=== PATIENT | male | born 1945 | race Caucasian/White ===

== ENCOUNTER 2016-12-15 22:10 | Inpatient (IN) | payer OTHER ==
[~2016-12-15] VITALS: Ht 190.5 cm; Wt 87.9 kg
[~2016-12-15 22:10] MED LIST: ASPEC81 PO; ATOR-24 PO; CALCTAB65 PO; CETI10TA10 PO; CMBIN INH; CPR500 PO; CRG125 PO; DABI150C PO; DILT-115 PO; FLUN0.02 NAE; FRS/40 PO; GUAI100S16 PO; HYDR200T5 PO; LEVO75TA PO; LNX125 PO; MORP-87 PO; MULT-513 PO; OMEP20CA59 PO; PARO40TA3 PO; POTA20TA16 PO; PRED20TA2 PO; RANI150T3 PO; SLFEC500 PO; TRAZ1TAB16 PO; [UNRECOGNIZED DRUG - CODE] OPB
[2016-12-15] MEDS ORDERED: SODIUM CHLORIDE 0.9% 1000ML 1,000 ML IV STA (22:42)
--- NOTE | 2016-12-15 22:50 | EMERGENCY ROOM VISIT NOTE ---
History Report prepared by Juan: Pily Dodson Under the Supervision of: Dr. Clyde Cruz D.O. First contact with patient: 22:36 Chief Complaint: SHORTNESS OF BREATH Stated Complaint: SOB, HEADACHE, CHEST PAIN, EYE PAIN Nursing Triage Summary: patient brought in by ems patient reports SOB since 1900 yesterday with intermittent chest pain patient reports left eye pain and left ear ache patient has hx of pacemaker History of Present Illness The patient is a 71 year old male who presents to the Emergency Room with complaints of constant shortness of breath beginning yesterday. He reports that last night he started having a headache and when he went to bed he felt like "a fish out of water" and very short of breath. He states that this morning he woke up and felt a little better but by the afternoon he was having the shortness of breath again. The patient complains of left eye pain below the brow , runny nose, and a left sided headache. He denies any fever, cough, and sore throat. He notes that the oxygen helps his shortness of breath. He reports that he had a pacemaker put in 6 weeks ago. The patient notes that he had a flu shot 3 weeks ago. Source of History: patient Onset: yesterday Position: other (global) Quality: other (shortness of breath "fish out of water") Timing: constant Modifying Factors (Relieving): oxygen Associated Symptoms: + headache, No cough, No fevers, No sorethroat Note: The patient has eye pain and runny nose. Review of Systems See HPI for pertinent positives & negatives. A total of 10 systems reviewed and were otherwise negative. Past Medical & Surgical Medical Problems: (1) Appendectomy (2) Atrial fibrillation (3) Benign hypertension (4) Gastroesophageal reflux disease (5) Hypotension (6) Pneumonia (7) Rheumatoid arthritis (8) Right lower lobe pneumonia (9) SIRS (systemic inflammatory response syndrome) (10) Stress fracture of right hip (11) Ulcers Family History Unobtainable family history due to adoption Social History Smoking Status: Never Smoker Alcohol Use: occasionally Drug Use: none Marital Status: Housing Status: lives alone Occupation Status: retired Current/Historical Medications Scheduled Artificial Tear Ointment (Lubricant Eye), 1 APPLN OPB HS Aspirin (Aspirin EC Low Dose), 81 MG PO QAM Atorvastatin (Lipitor), 1 TAB PO DAILY Calcium Carbonate-Vitamin D (Calcium 500 + D), 1 TAB PO BID Carvedilol (Carvedilol), 12.5 MG PO BID Dabigatran Etexilate Mesylate (Pradaxa), 1 CAP PO BID Digoxin (Digoxin), 0.125 MG PO DAILY@16 Diltiazem Hcl Ext Rel (Tiazac), 240 MG PO DAILY Furosemide (Lasix), 40 MG PO DAILY Hydroxychloroquine Sulfate (Plaquenil), 200 MG PO BID Levothyroxine Sodium (Synthroid), 75 MCG PO DAILY Multivitamins/Minerals (Mvi With Minerals), 1 TAB PO DAILY AT NOON Omeprazole (Prilosec), 20 MG PO QAM Paroxetine Hcl (Paxil), 40 MG PO QAM Potassium Ext Rel (Klor-Con), 20 MEQ PO DAILY Prednisone (Prednisone Tab), 10 MG PO BID Ranitidine Hcl (Zantac), 150 MG PO HS Sulfasalazine (Sulfasalazine), 500 MG PO BID Scheduled PRN Cetirizine Hcl (Zyrtec), 10 MG PO DAILY PRN for ALLERGIC REACTION Flunisolide (Nasal) (Flunisolide), 2 PUFFS ARIADNA BID PRN for Nasal Congestion Guaifenesin (Guaifenesin), 10 ML PO BID PRN for Cough Ipratropium/Albuterol (Combivent), 1 PUFFS INH QID PRN for Shortness of Breath Morphine Sulfate (Morphine Sulfate Cr), 30 MG PO Q12 PRN for Pain Trazodone Hcl (Desyrel), 50 MG PO HS PRN for Sleep Allergies Coded Allergies: NO KNOWN DRUG ALLERGIES (Verified Allergy, Unknown, ., 12/16/16) Physical Exam Vital Signs Date Time Temp Pulse Resp B/P Pulse Ox O2 Delivery O2 Flow Rate FiO2 12/15/16 23:38 96 22 129/97 99 Nasal Cannula 2.0 12/15/16 22:25 101 12/15/16 22:19 100 Nasal Cannula 2.0 12/15/16 22:19 36.9 99 22 114/71 93 Room Air Physical Exam CONSTITUTIONAL/VITAL SIGNS: Reviewed / noted above. GENERAL: Non-toxic in appearance. INTEGUMENTARY: Warm, dry, and [place]. HEAD: Normocephalic. EYES: without scleral icterus or trauma. No conjunctival injection, the globe appears normal, EOM is intact without discomfort, the pt localized the pain to the left supraorbital region. There is no tenderness to palpation of the temporal artery. ENT/OROPHARYNX: clear and moist. LYMPHADENOPATHY/NECK: Is supple without lymphadenopathy or meningismus. RESPIRATORY: Lungs clear and equal. CARDIOVASCULAR: Regular rate and rhythm. GI/ABDOMEN: Soft and nontender. No organomegaly or pulsatile mass. No rebound or guarding. Normal bowel sounds. EXTREMITIES: Warm and well perfused. BACK: No CVA tenderness. NEUROLOGICAL: Intact without focal deficits. PSYCHIATRIC: normal affect. MUSCULOSKELETAL: Normally developed with good muscle tone. Medical Decision & Procedures ER Provider Diagnostic Interpretation: X ray results and stated below per my interpretation and radiologist interpretation. Other radiology results and stated below per my review and radiologist interpretation: CHEST ONE VIEW PORTABLE FINDINGS: A left subclavian pacer/AICD is in place. Marked cardiomegaly is unchanged. There is no pneumothorax. Degenerative changes of both glenohumeral joints are incidentally noted. Elevation of the left hemidiaphragm is unchanged. Mild interstitial thickening is present. There is no pneumothorax or pleural effusion. IMPRESSION: 1. Mild interstitial thickening. Pulmonary edema is favored. An infectious process could appear similar although is considered less likely. 2. Stable cardiomegaly and elevation of the left hemidiaphragm. Electronically signed by: Reinier Chung M.D. 12/15/2016 10:58 PM Dictated Date/Time: 12/15/2016 10:[address] HEAD: No ICH, mass effect or edema. No evidence of acute cortical stroke. Periventricular small vessel ischemic change. No midline shift or hydrocephalus. Diffuse parenchymal atrophy. CT SINUSES: Opacified left ethmoidal air cells and maxillary sinus. No air-fluid levels. Thickening of the wall of the left maxillary sinus indicated the long-standing nature of this chronic inflammatory process. Opacified inferior left mastoid air cells. Correlate cor clinical significance. No acute or healing fracture. Radiologist: Everardo Sorto M.D. Laboratory Results 12/15/16 22:00 Red Blood Count 4.03, Mean Corpuscular Volume 86.8, Mean Corpuscular Hemoglobin 26.8, Mean Corpuscular Hemoglobin Concent 30.9, Mean Platelet Volume 9.5, Neutrophils (%) (Auto) 74.3, Lymphocytes (%) (Auto) 11.6, Monocytes (%) (Auto) 11.1, Eosinophils (%) (Auto) 2.3, Basophils (%) (Auto) 0.3, Neutrophils # (Auto ) 7.68, Lymphocytes # (Auto) 1.20, Monocytes # (Auto) 1.15, Eosinophils # (Auto ) 0.24, Basophils # (Auto) 0.03 12/15/16 22:00 Test 12/15/16 22:00 12/15/16 22:36 12/15/16 23:00 White Blood Count 10.34 K/uL (4.8-10.8) Red Blood Count 4.03 M/uL (4.7-6.1) Hemoglobin 10.8 g/dL (14.0-18.0) Hematocrit 35.0 % (42-52) Mean Corpuscular Volume 86.8 fL (80-100) Mean Corpuscular Hemoglobin 26.8 pg (25-34) Mean Corpuscular Hemoglobin Concent 30.9 g/dl (32-36) Platelet Count 215 K/uL (130-400) Mean Platelet Volume 9.5 fL (7.4-10.4) Neutrophils (%) (Auto) 74.3 % Lymphocytes (%) (Auto) 11.6 % Monocytes (%) (Auto) 11.1 % Eosinophils (%) (Auto) 2.3 % Basophils (%) (Auto) 0.3 % Neutrophils # (Auto) 7.68 K/uL (1.4-6.5) Lymphocytes # (Auto) 1.20 K/uL (1.2-3.4) Monocytes # (Auto) 1.15 K/uL (0.11-0.59) Eosinophils # (Auto) 0.24 K/uL (0-0.5) Basophils # (Auto) 0.03 K/uL (0-0.2) RDW Standard Deviation 54.6 fL (36.4-46.3) RDW Coefficient of Variation 17.1 % (11.5-14.5) Immature Granulocyte % (Auto) 0.4 % Immature Granulocyte # (Auto) 0.04 K/uL (0.00-0.02) Nucleated RBC Absolute Count (auto) 0.05 K/uL (0-0) Nucleated Red Blood Cells % 0.4 % Erythrocyte Sedimentation Rate 28 mm/hr (0-14) Prothrombin Time 12.9 SECONDS (9.0-12.0) Prothromb Time International Ratio 1.2 (0.9-1.1) Activated Partial Thromboplast Time 42.0 SECONDS (21.0-31.0) Partial Thromboplastin Ratio 1.6 Anion Gap 13.0 mmol/L (3-11) Est Creatinine Clear Calc Drug Dose 179.5 ml/min Estimated GFR () 130.5 Estimated GFR (Non- 112.6 BUN/Creatinine Ratio 21.3 (10-20) Calcium Level 8.5 mg/dl (8.5-10.1) Magnesium Level 1.9 mg/dl (1.8-2.4) Total Bilirubin 0.8 mg/dl (0.2-1) Direct Bilirubin 0.3 mg/dl (0-0.2) Aspartate Amino Transf (AST/SGOT) 18 U/L (15-37) Alanine Aminotransferase (ALT/SGPT) 17 U/L (12-78) Alkaline Phosphatase 64 U/L (45-117) Total Creatine Kinase 49 U/L (39-308) Creatine Kinase MB 2.1 ng/ml (0.5-3.6) Creatine Kinase MB Ratio 4.3 (0-3.0) Troponin I 0.081 ng/ml (0-0.045) Total Protein 6.8 gm/dl (6.4-8.2) Albumin 3.2 gm/dl (3.4-5.0) Thyroid Stimulating Hormone (TSH) 2.240 uIu/ml (0.300-4.500) Urine Color YELLOW Urine Appearance CLEAR (CLEAR) Urine pH 6.0 (4.5-7.5) Urine Specific [place] 1.020 (1.000-1.030) Urine Protein 1+ (NEG) Urine Glucose (UA) NEG (NEG) Urine Ketones NEG (NEG) Urine Occult Blood NEG (NEG) Urine Nitrite NEG (NEG) Urine Bilirubin NEG (NEG) Urine Urobilinogen POS (NEG) Urine Leukocyte Esterase NEG (NEG) Urine RBC 0-4 /hpf (0-4) Urine WBC 0 /hpf (0-5) Urine Epithelial Cells 0-5 /lpf (0-5) Urine Bacteria NEG (NEG) Influenza Type A (RT-PCR) Neg for Influ A (NEG) Influenza Type B (RT-PCR) Neg for Influ B (NEG) Laboratory results as stated above per my review. Medications Administered Medications (Trade) Dose Ordered Sig/Timo Route Start Time Stop Time Status Last Admin Dose Admin Oxycodone/ Acetaminophen (Percocet 5-325mg Tab) 1 tab NOW ONCE PO 12/15/16 23:45 12/15/16 23:46 DC 12/15/16 23:36 1 TAB ECG Indication: SOB/dyspnea Rate (beats per minute): 90 Rhythm: atrial fibrillation Findings: PVC, ST depression (Anterolateral) Comparison ECG Date: 09/12/16 Change: ST changes worse than baseline on old EKG. ED Course 2235: Previous medical records were reviewed. The patient was evaluated in room B2. A complete history and physical examination was performed. 2242: Sodium Chloride 1000 ml @ 999 mls/hr IV. 2345: Oxycodone/Acetaminophen 1 tab PO. 0022: Discussed the patient's case with Dr. Wetzel. The patient will be evaluated for further treatment and disposition. 0032:On reevaluation, the patient is hemodynamically stable. I discussed the results and findings with the patient. He verbalized agreement of the treatment plan. I spoke with Dr. Wetzel who is the resident working with Dr. Erazo of the [facility] Hospitalist Service. The patient will be evaluated for further management and care. Medical Decision The differential was considered includes acute myocardial infarction, acute coronary syndrome, myocarditis, pericarditis, pericardial effusions /tamponad, esophageal perforation, pulmonary embolism, pneumonia, pneumothorax, cardiomyopathy, congestive heart, anemia , COPD/asthma exacerbation. This is a 71-year-old male who presents to the ED with a chief complaint of some shortness of breath as well as a pain in the left periorbital area. Further details listed above. The patient's symptoms of a knot on for the past couple of days. His exam did not reveal any tenderness over the temporal artery. His external motion is intact. The globe of the eye does not appear to be associated with the pain. His membranes are slightly dry. His exam is otherwise unremarkable. Chest x-ray reveals mild interstitial pulmonary edema. Complete metabolic panel was unremarkable. Troponin is elevated at 0.08. Urine did not show infection. EKG shows a sinus rhythm with some ST depressions anterolaterally. These appear to be worse than a previous EKG. Baseline patient fibrillation with PVCs noted. Sedimentation rate was slightly elevated. CT scan of the head and sinuses reveals some chronic sinusitis changes in the left ethmoid maxillary region. The patient was given Percocet by mouth for his pain. Because of his elevated troponin and shortness of breath , patient will be seen for inpatient care. He is on new generation oral anticoagulation for his A. fib. The patient clinically stable and has no complaints at this time. Consults Time Called: [phone] Consulting Physician: Dr. Wetzel Returned Call: [phone] Discussed the patient's case with Dr. Wetzel. The patient will be evaluated for further treatment and disposition. Impression Primary Impression: NSTEMI (non-ST elevated myocardial infarction) Additional Impressions: CHF (congestive heart failure) Chronic sinusitis Scribe Attestation The scribe's documentation has been prepared under my direction and personally reviewed by me in its entirety. I confirm that the note above accurately reflects all work, treatment, procedures, and medical decision making performed by me. Departure Information Referrals Gena Simmons M.D. (PCP) Patient Instructions My [facility] Problem Qualifiers
[2016-12-15 22:52] LABS: BASO % 0.3 %; BASO ABS # 0.03 K/uL (0-0.2); COMPLETE YES; EOS % 2.3 %; IG% 0.4 %; LYMPH % 11.6 %; MEAN CELL VOLUME 86.8 fL (80-100); MEAN CORPUSCULAR HEMOGLOBIN 26.8 pg (25-34); MEAN CORPUSCULAR HGB CONC 30.9 g/dl (32-36); MEAN PLATELET VOLUME 9.5 fL (7.4-10.4); MONO % 11.1 %; NEUT % 74.3 %; PLATELET COUNT 215 K/uL (130-400); RED BLOOD COUNT 4.03 M/uL (4.7-6.1); WHITE BLOOD COUNT 10.34 K/uL (4.8-10.8)
--- NOTE | 2016-12-15 22:59 | DIAGNOSTIC IMAGING REPORT ---
CHEST ONE VIEW PORTABLE CLINICAL HISTORY: Altered mental status. Weakness. Shortness of breath. COMPARISON STUDY: Chest radiograph September 13, 2016. FINDINGS: A left subclavian pacer/AICD is in place. Marked cardiomegaly is unchanged. There is no pneumothorax. Degenerative changes of both glenohumeral joints are incidentally noted. Elevation of the left hemidiaphragm is unchanged. Mild interstitial thickening is present. There is no pneumothorax or pleural effusion. IMPRESSION: 1. Mild interstitial thickening. Pulmonary edema is favored. An infectious process could appear similar although is considered less likely. 2. Stable cardiomegaly and elevation of the left hemidiaphragm. Electronically signed by: Reinier Chung M.D. 12/15/2016 10:58 PM Dictated Date/Time: 12/15/2016 10:56 PM
[2016-12-15 23:02] LABS: MANUAL MICROSCOPIC REQUIRED? YES; URINE APPEARANCE CLEAR (CLEAR); URINE BILIRUBIN NEG (NEG); URINE COLOR YELLOW; URINE NITRITE NEG (NEG); UROBILINOGEN POS (NEG)
[2016-12-15 23:03] LABS: REVIEW REQ? NO
[2016-12-15 23:03] LABS: INR 1.2 (0.9-1.1); PARTIAL THROMBOPLASTIN RATIO 1.6; PROTHROMBIN TIME (PATIENT) 12.9 SECONDS (9.0-12.0)
[2016-12-15 23:06] LABS: BUN/CREATININE RATIO 21.3 (10-20); CALCIUM 8.5 mg/dl (8.5-10.1); CREATININE 0.47 mg/dl (0.60-1.40); MAGNESIUM 1.9 mg/dl (1.8-2.4); POTASSIUM 3.5 mmol/L (3.5-5.1)
[2016-12-15 23:11] LABS: URINE BACTERIA NEG (NEG); URINE RBC 0-4 /hpf (0-4); URINE WBC 0 /hpf (0-5); ZZUR CULT IF INDIC CLEAN CATCH NO
[2016-12-15 23:27] LABS: CKMB/CK RATIO 4.3 (0-3.0); THYROID STIMULATING HORMONE 2.24 uIu/ml (0.300-4.500)
[2016-12-15] MEDS ORDERED: OXYCODONE/ACETAMINOPHEN 5-325 TAB PO ONE (23:45)
[2016-12-16] VITALS (10 sets, daily range): BP systolic 83–137; BP diastolic 47–89; PULSE 59–103; TEMP 36.5–37.1; O2SAT 91–99; Ht 190.5 cm; Wt 87.9 kg
[2016-12-16 00:43] LABS: INFLUENZA A PCR Neg for Influ A (NEG); INFLUENZA B PCR Neg for Influ B (NEG)
[2016-12-16] MEDS ORDERED: NITROGLYCERIN 0.4 MG SL PER TAB CHARGE SL PRN (01:15)
[2016-12-16] MEDS ORDERED: POLYETHYLENE (MIRALAX) 17 GM PACK PO PRN (01:15)
[2016-12-16] MEDS ORDERED: ENOXAPARIN 40 MG/0.4 ML SYR SC SCH (01:15)
[2016-12-16] MEDS ORDERED: ONDANSETRON INJ 2 MG/ML 2 ML VIAL IV PRN (01:15)
[2016-12-16] MEDS ORDERED: MAGNESIUM HYDROXIDE SUSP 30 ML UDC PO PRN (01:15)
[2016-12-16] MEDS ORDERED: FUROSEMIDE 40 MG/4 ML VIAL IV STA (01:20)
[2016-12-16] MEDS ORDERED: TRAZODONE HCL 50 MG TAB PO PRN (01:30)
[2016-12-16] MEDS ORDERED: CETIRIZINE HCL 10 MG TAB PO PRN (01:30)
[2016-12-16] MEDS ORDERED: GUAIFENESIN SUGAR FREE 100 MG/5 ML UDC PO PRN ×2 (01:30→02:30)
--- NOTE | 2016-12-16 01:42 | History and Physical ---
History & Physical Date & Time of Service: Dec 16, 2016 at 01:29 Chief Complaint: Sob, Headache, Chest Pain, Eye Pain Primary Care Physician: No Doctor, Assigned History of Present Illness Source: patient Patient is a pleasant 71 year old male with a history of recently diagnosed systolic CHF (EF 25-30%), who presents with 2 days of shortness of breath. He notes he was doing generally well until 2 days ago when he started feeling more short of breath. He was short enough that he needed to cancel dinner. He also states being more short of breath when lying flat and feeling like sitting forward makes it better. He has also felt sporadically slightly lightheaded though this would occur both at rest and when he was moving. He has had some aching discomfort in his left clavicle, but denies any crushing/pressure-like chest pain. The pain in his clavicle doesn't radiate to the jaw or arms. He has intermittently had palpitations. For the past one week he notes, a cough with phlegm. He denies fevers, nightsweats or chills. In addition to his symptoms, he notes some pain in his left eye that goes to the top of the head back of the byrd. He denies blurred vision or photophobia. He has not had a specific weakness or sensory changes elsewhere in the body. His appetite has been slightly reduced for the past week but he continues to void per baseline. A 10 point review of systems was negative unless stated above. Past Medical/Surgical History Medical Problems: (1) Appendectomy Status: Resolved (2) Atrial fibrillation Status: Chronic (3) Benign hypertension Status: Chronic (4) Gastroesophageal reflux disease Status: Chronic (5) Pneumonia Status: Chronic (6) Rheumatoid arthritis Status: Chronic (7) Stress fracture of right hip Status: Chronic (8) Ulcers Status: Chronic Family History Unobtainable family history due to adoption Social History Smoking Status: Never Smoker Smokeless Tobacco Use: No Alcohol Use: occasionally (2 units nightly) Drug Use: none Marital Status: Housing status: lives alone Occupational Status: retired Immunizations History of Influenza Vaccine: Yes Influenza Vaccine Date: Aug 06, 2013 History of Tetanus Vaccine?: UNK Tetanus Immunization Date: Dec 07, 2012 History of Pneumococcal: No Pneumococcal Date: March 06, 2011 History of Hepatitis B Vaccine: No Hepatitis Immunization Date: March 06, 2012 Multi-Drug Resistant Organisms History of MDRO: No Allergies Coded Allergies: NO KNOWN DRUG ALLERGIES (Verified Allergy, Unknown, ., 12/16/16) Home Medications Scheduled Artificial Tear Ointment (Lubricant Eye), 1 APPLN OPB HS Aspirin (Aspirin EC Low Dose), 81 MG PO QAM Atorvastatin (Lipitor), 1 TAB PO DAILY Calcium Carbonate-Vitamin D (Calcium 500 + D), 1 TAB PO BID Carvedilol (Carvedilol), 12.5 MG PO BID Dabigatran Etexilate Mesylate (Pradaxa), 1 CAP PO BID Digoxin (Digoxin), 0.125 MG PO DAILY@16 Diltiazem Hcl Ext Rel (Tiazac), 240 MG PO DAILY Furosemide (Lasix), 40 MG PO DAILY Hydroxychloroquine Sulfate (Plaquenil), 200 MG PO BID Levothyroxine Sodium (Synthroid), 75 MCG PO DAILY Multivitamins/Minerals (Mvi With Minerals), 1 TAB PO DAILY AT NOON Omeprazole (Prilosec), 20 MG PO QAM Paroxetine Hcl (Paxil), 40 MG PO QAM Potassium Ext Rel (Klor-Con), 20 MEQ PO DAILY Prednisone (Prednisone Tab), 10 MG PO BID Ranitidine Hcl (Zantac), 150 MG PO HS Sulfasalazine (Sulfasalazine), 500 MG PO BID Scheduled PRN Cetirizine Hcl (Zyrtec), 10 MG PO DAILY PRN for ALLERGIC REACTION Flunisolide (Nasal) (Flunisolide), 2 PUFFS ARIADNA BID PRN for Nasal Congestion Guaifenesin (Guaifenesin), 10 ML PO BID PRN for Cough Ipratropium/Albuterol (Combivent), 1 PUFFS INH QID PRN for Shortness of Breath Morphine Sulfate (Morphine Sulfate Cr), 30 MG PO Q12 PRN for Pain Trazodone Hcl (Desyrel), 50 MG PO HS PRN for Sleep Review of Systems A 10 point review of systems was negative unless stated above. Physical Exam Vital Signs Date Time Temp Pulse Resp B/P Pulse Ox O2 Delivery O2 Flow Rate FiO2 12/16/16 01:05 97 22 134/93 97 Nasal Cannula 2.0 12/15/16 23:38 96 22 129/97 99 Nasal Cannula 2.0 12/15/16 22:25 101 12/15/16 22:19 100 Nasal Cannula 2.0 12/15/16 22:19 36.9 99 22 114/71 93 Room Air General Appearance: WD/WN, no apparent distress Head: normocephalic Eyes: + pertinent finding (right eyelid drooping, left eye more proptosed but no periorbital erythema no sinus pressure) ENT: hearing grossly normal, pharynx normal Neck: supple, no adenopathy, no JVD (no accentuation of JVD with hepatojugular reflux) Respiratory/Chest: chest non-tender, no respiratory distress, + pertinent finding (bibasilar crackles; L slightly > R) Cardiovascular: no gallop, no murmur, + irregularly irregular Abdomen/GI: normal bowel sounds, non tender, soft Back: no CVA tenderness Extremities/Musculoskelatal: no calf tenderness, + pertinent finding (2+ pitting edema, R > L) Neurologic/Psych: alert, normal mood/affect Skin: normal color, warm/dry, no rash Lymphatic: no adenopathy Diagnostics Laboratory Results Results Past 24 Hours Test 12/15/16 22:00 12/15/16 22:36 12/15/16 23:00 12/16/16 01:20 Range/Units White Blood Count 10.34 4.8-10.8 K/uL Red Blood Count 4.03 4.7-6.1 M/uL Hemoglobin 10.8 14.0-18.0 g/dL Hematocrit 35.0 42-52 % Mean Corpuscular Volume 86.8 80-100 fL Mean Corpuscular Hemoglobin 26.8 25-34 pg Mean Corpuscular Hemoglobin Concent 30.9 32-36 g/dl Platelet Count 215 130-400 K/uL Mean Platelet Volume 9.5 7.4-10.4 fL Neutrophils (%) (Auto) 74.3 % Lymphocytes (%) (Auto) 11.6 % Monocytes (%) (Auto) 11.1 % Eosinophils (%) (Auto) 2.3 % Basophils (%) (Auto) 0.3 % Neutrophils # (Auto) 7.68 1.4-6.5 K/uL Lymphocytes # (Auto) 1.20 1.2-3.4 K/uL Monocytes # (Auto) 1.15 0.11-0.59 K/uL Eosinophils # (Auto) 0.24 0-0.5 K/uL Basophils # (Auto) 0.03 0-0.2 K/uL RDW Standard Deviation 54.6 36.4-46.3 fL RDW Coefficient of Variation 17.1 11.5-14.5 % Immature Granulocyte % (Auto) 0.4 % Immature Granulocyte # (Auto) 0.04 0.00-0.02 K/uL Nucleated RBC Absolute Count (auto) 0.05 0-0 K/uL Nucleated Red Blood Cells % 0.4 % Erythrocyte Sedimentation Rate 28 0-14 mm/hr Prothrombin Time 12.9 9.0-12.0 SECONDS Prothromb Time International Ratio 1.2 0.9-1.1 Activated Partial Thromboplast Time 42.0 21.0-31.0 SECONDS Partial Thromboplastin Ratio 1.6 Sodium Level 143 136-145 mmol/L Potassium Level 3.5 3.5-5.1 mmol/L Chloride Level 104 98-107 mmol/L Carbon Dioxide Level 26 21-32 mmol/L Anion Gap 13.0 3-11 mmol/L Blood Urea Nitrogen 10 7-18 mg/dl Creatinine 0.47 0.60-1.40 mg/dl Est Creatinine Clear Calc Drug Dose 179.5 ml/min Estimated GFR () 130.5 Estimated GFR (Non- 112.6 BUN/Creatinine Ratio 21.3 10-20 Random Glucose 90 70-99 mg/dl Calcium Level 8.5 8.5-10.1 mg/dl Magnesium Level 1.9 1.8-2.4 mg/dl Total Bilirubin 0.8 0.2-1 mg/dl Direct Bilirubin 0.3 0-0.2 mg/dl Aspartate Amino Transf (AST/SGOT) 18 15-37 U/L Alanine Aminotransferase (ALT/SGPT) 17 12-78 U/L Alkaline Phosphatase 64 45-117 U/L Total Creatine Kinase 49 39-308 U/L Creatine Kinase MB 2.1 0.5-3.6 ng/ml Creatine Kinase MB Ratio 4.3 0-3.0 Troponin I 0.081 0-0.045 ng/ml Total Protein 6.8 6.4-8.2 gm/dl Albumin 3.2 3.4-5.0 gm/dl Thyroid Stimulating Hormone (TSH) 2.240 0.300-4.500 uIu/ml Urine Color YELLOW Urine Appearance CLEAR CLEAR Urine pH 6.0 4.5-7.5 Urine Specific [place] 1.020 1.000-1.030 Urine Protein 1+ NEG Urine Glucose (UA) NEG NEG Urine Ketones NEG NEG Urine Occult Blood NEG NEG Urine Nitrite NEG NEG Urine Bilirubin NEG NEG Urine Urobilinogen POS NEG Urine Leukocyte Esterase NEG NEG Urine RBC 0-4 0-4 /hpf Urine WBC 0 0-5 /hpf Urine Epithelial Cells 0-5 0-5 /lpf Urine Bacteria NEG NEG Influenza Type A (RT-PCR) Neg for Influ A NEG Influenza Type B (RT-PCR) Neg for Influ B NEG Diagnostic Radiology CHEST ONE VIEW PORTABLE CLINICAL HISTORY: Altered mental status. Weakness. Shortness of breath. COMPARISON STUDY: Chest radiograph September 13, 2016. FINDINGS: A left subclavian pacer/AICD is in place. Marked cardiomegaly is unchanged. There is no pneumothorax. Degenerative changes of both glenohumeral joints are incidentally noted. Elevation of the left hemidiaphragm is unchanged. Mild interstitial thickening is present. There is no pneumothorax or pleural effusion. IMPRESSION: 1. Mild interstitial thickening. Pulmonary edema is favored. An infectious process could appear similar although is considered less likely. 2. Stable cardiomegaly and elevation of the left hemidiaphragm. EKG Afib with rate 90 BPM Single PVC noted ST depression and T wave inversion in V3 and V4 Impression Assessment and Plan Pleasant 71 year old male shortness of breath for 2 days. CXR and clinical examination favor diagnosis of acute on chronic CHF exacerbation. Our plan for him is as follows: Acute on chronic systolic CHF exacerbation - Will administer 40 mg Lasix IV in the ED; Luna catheter inserted - Given acute exacerbation, will hold home dose of carvedilol - Most recent echo done on 09/18; EF reported as 25-30%; will repeat to determine if EF has changed Atrial Fibrillation - Continue Diltiazem - Carvedilol held due to acute CHF exacerbation - Continue Digoxin; serum digoxin level subtherapeutic - Patient currently anticoagulated on Pradaxa which is to be continued on admission Possible PNA - CXR notes possibility of infective process - Lung examination reveals increased crackles in L side ?overlying PNA? - Pro-calcitonin not elevated; I am not inclined to treat at this time, but would continue to follow daily WBC Right eye pain - CT sinuses appears to show fullness of left maxillary sinus Final report pending Percocet given in ED with relief Toradol 30 mg IV once given up on the floor - ESR elevated slightly but not to levels consistent with GCA Rheumatoid arthritis - Continue Plaquenil, Sulfasalazine - Continue Prednison 10 mg BID Code Status Level I DVT prophylaxis - Pradaxa Disposition - Telemetry - OT/PT orders Level of Care Telemetry Resuscitation Status FULL RESUSCITATION VTE Prophylaxis VTE Risk Assessment Done? Y/N: Yes Risk Level: Moderate Given or contraindicated: Other Anticoagulation (Pradaxa) Assessment and Plan Attending Addendum: I have physically seen and examined this patient, have directed their medical care, have supervised the medical residents activities, and agree with the H&P as noted above, with the following changes: NONE The patient is awake, well-developed and adequately nourished, alert and oriented 3, normocephalic and atraumatic, lying in bed and in no acute distress. HEENT--PERRL, EOMI, mucous membranes and oropharynx dry. Neck--supple, no JVD or bruits, thyroid normal, trachea midline, no adenopathy. Heart--normal S1 and S2, no extra beats, no murmurs, rubs or gallops. Lungs--crackles at the bases bilaterally, no respiratory distress, no accessory muscle use. Abdomen--normal bowel sounds and soft, nontender and nondistended, no hernias or masses, no organomegaly. Extremities--no cyanosis, clubbing.there is bilaterally 1-2+ pitting edema. There are good distal pulses b/l. Dermatologic--normal skin turgor, normal color, warm and dry, no abnormal lymph nodes, no rash. Neurologic--cranial nerves II through XII grossly intact, motor and sensory examination normal. Rheumatologic--normal range of motion, nontender, muscles and joints. Psychiatric--normal affect. Assessment and Plan: Acute on chronic systolic CHF--given Lasix 40 mg IV tonight and follow response. If he does not respond or clinically worsens, with his decreased ejection fraction, would consider the addition of dobutamine drip. We'll admit to telemetry unit, follow serial cardiac enzymes, cardiac rhythm monitoring and a 2-D echocardiogram with Dopplers. Continue diltiazem and digoxin, hold carvedilol at this time. Continue pradaxa for anticoagulation, and aspirin 81 mg every morning for antiplatelet effect. Rheumatoid arthritis --continue plaquenil and sulfasalazine, will continue prednisone 10 mg by mouth twice a day at current dose, but may need stress dose steroids. Hypercholesterolemia--continue atorvastatin. Hypothyroidism--continue levothyroxine sodium at 75 g by mouth daily. Depression--continue Paxil 40 mg by mouth every morning. GERD--continue ranitidine 150 mg by mouth at bedtime, change Prilosec 20 mg by mouth every morning to pantoprazole 40 mg by mouth every morning.
[2016-12-16] MEDS ORDERED: KETOROLAC TROMETHAMINE 15 MG/ML VIAL IV. STA (04:43)
[2016-12-16] MEDS: LEVOTHYROXINE 75 MCG TAB PO SCH (05:21)
--- NOTE | 2016-12-16 06:31 | DIAGNOSTIC IMAGING REPORT ---
SINUS CT CT DOSE: HISTORY: Pain left temporal pain TECHNIQUE: Multiaxial CT images of the paranasal sinuses were performed and reformatted in the coronal plane without the use of contrast. COMPARISON: None. FINDINGS: Nasal cannula in place. Opacified left maxillary and left ethmoid sinus. Occlusion left ostiomeatal unit. Probable destructive changes left medial maxillary sinus wall versus expansile changes. Orbital margins are intact. Structures of the globes as well as the orbital structures appear symmetric. Trace mucosal thickening right ethmoid sinuses. Hypoplastic change left nasal turbinates. The mastoid air cells are clear. The nasal septum is midline. The orbits are unremarkable. IMPRESSION: 1. Near complete opacification left maxillary and left ethmoid air cells. 2. Opacified left ostiomeatal unit. 3. Probable destructive changes versus expansile changes left medial maxillary sinus wall. 4. Differential considerations include chronic sinus change versus expansile polypoid change. Electronically signed by: Mo Vivas M.D. 12/16/2016 6:30 AM Dictated Date/Time: 12/16/2016 6:28 AM
--- NOTE | 2016-12-16 06:48 | DIAGNOSTIC IMAGING REPORT ---
CT OF THE HEAD WITHOUT CONTRAST CLINICAL HISTORY: Altered mental status. Weakness. COMPARISON STUDY: Head CT March 23, 2013 TECHNIQUE: Helical axial images of the head were obtained without IV contrast. Automated exposure control was utilized for the study. FINDINGS: No acute intracranial hemorrhage, midline shift or mass effect is present. Ventricular system is stable. Basilar cisterns are patent. There are no extra axial collections. White matter hypodensity suggests small vessel disease. There are no findings to suggest acute dural sinus thrombosis or acute territorial infarct. Hypodensity within the periventricular left parietooccipital region has increased. This is age indeterminate but likely old. The left maxillary sinus is opacified. There is enlargement of the ostium of the left maxillary sinus with mixed attenuation material protruding through. This is better depicted on the sinus CT. The ethmoid sinuses are partially opacified. There is wall thickening of the left maxillary sinus. There is a small amount of fluid within left mastoid air cells. IMPRESSION: 1. No acute intracranial hemorrhage or mass effect. 2. Increase in periventricular white matter hypodensity within left parietal-occipital region. While age indeterminate, this is probably old. 3. Opacified left maxillary sinus with widening of the left maxillary sinus ostium which contains mixed attenuation material. The findings are better depicted on the sinus CT. Please see that report for further description. Electronically signed by: Reinier Chung M.D. 12/16/2016 6:46 AM Dictated Date/Time: 12/16/2016 6:41 AM
[2016-12-16 07:48] LABS: BASO % 0.3 %; BASO ABS # 0.03 K/uL (0-0.2); COMPLETE YES; EOS % 1.8 %; IG% 0.3 %; LYMPH % 13.2 %; LYMPH ABS # 1.24 K/uL (1.2-3.4); MEAN CORPUSCULAR HEMOGLOBIN 26.2 pg (25-34); MEAN CORPUSCULAR HGB CONC 31.3 g/dl (32-36); MEAN PLATELET VOLUME 8.8 fL (7.4-10.4); MONO % 13.5 %; NEUT % 70.9 %; PLATELET COUNT 195 K/uL (130-400); RED BLOOD COUNT 3.81 M/uL (4.7-6.1)
[2016-12-16] MEDS: ATORVASTATIN 20 MG TAB PO SCH (08:20)
[2016-12-16 08:22] LABS: BUN/CREATININE RATIO 14.8 (10-20); CALCIUM 8.2 mg/dl (8.5-10.1); CREATININE 0.4 mg/dl (0.60-1.40); POTASSIUM 2.8 mmol/L (3.5-5.1)
[2016-12-16] MEDS: DILTIAZEM HCL 120 MG EXT REL CAP PO SCH (08:22)
[2016-12-16] MEDS: PANTOprazole SOD 40 MG TAB PO SCH (08:22)
[2016-12-16] MEDS: HYDROXYCHLOROQUINE SULFATE 200 MG TAB PO SCH ×2 (08:22→20:30)
[2016-12-16] MEDS: CALCIUM 600MG + VIT D 400 IU TAB PO SCH ×2 (08:23→20:32)
[2016-12-16] MEDS: DABIGATRAN ELEXILATE 75 MG CAP PO SCH ×2 (08:23→20:29)
[2016-12-16] MEDS: ASPIRIN 81 MG ECTAB PO SCH (08:23)
[2016-12-16] MEDS: SULFASALAZINE 500 MG TABEC PO SCH ×2 (08:25→20:31)
[2016-12-16 08:26] LABS: CKMB/CK RATIO 4.8 (0-3.0)
[2016-12-16] MEDS ORDERED: POTASSIUM CHLORIDE 20 MEQ TABCR PO SCH ×2 (09:00→21:00)
[2016-12-16] MEDS ORDERED: POTASSIUM CHLORIDE 20 MEQ TABCR PO ONE (09:15)
[2016-12-16] MEDS: PAROXETINE 20 MG TAB PO SCH (10:05)
--- NOTE | 2016-12-16 12:14 | Hospitalist Progress Note ---
Hospitalist Progress Note Date of Service Dec 16, 2016. (Lori Sims ., JOSE LUISC) Subjective Pt evaluation today including: conversation w/ patient, physical exam, chart review, lab review, review of studies, review of inpatient medication list Pain: 5/10 aching left shoulder pain and 5/10 aching left eye pain Voiding: no voiding problems The patient is not a very reliable historian and has a lot of difficulty describing his symptoms or determining if they are improving. He thinks his shortness of breath is the same. He cannot tell me if he is dyspneic on exertion. He complains of a productive cough with clear sputum and denies any wheezing. The patient has noticed some swelling in his right lower extremity, although this has improved. He states that his appetite has been decreased lately. He complains of a 5/10 aching pain in his posterior left shoulder that radiates to his left clavicle. He also complains of a 5/10 aching pain in his left eye. He states that he previously had some swelling around the left eye, but this has since resolved. The patient denies fevers, chills, sweats, chest pain, palpitations, claudication, wheezing, nausea, vomiting, abdominal pain, dysuria, hematuria, urinary retention, paralysis, weakness, numbness and tingling. Additional Comments: See HPI for pertinent positives and negatives. All other systems reviewed and negative. (Lori Sims ., PA-C) Objective Vital Signs Date Time Temp Pulse Resp B/P Pulse Ox O2 Delivery O2 Flow Rate FiO2 12/16/16 07:56 37.1 79 18 137/89 92 Room Air 12/16/16 04:00 93 Room Air 12/16/16 02:19 36.8 103 20 121/82 93 Nasal Cannula 2.0 12/16/16 01:47 94 22 139/91 96 Nasal Cannula 2.0 12/16/16 01:05 97 22 134/93 97 Nasal Cannula 2.0 12/15/16 23:38 96 22 129/97 99 Nasal Cannula 2.0 12/15/16 22:25 101 12/15/16 22:19 100 Nasal Cannula 2.0 12/15/16 22:19 36.9 99 22 114/71 93 Room Air (Lori Sims ., KAREY-C) Physical Exam General Appearance: WD/WN, no apparent distress Eyes: normal inspection, PERRL, EOMI (possibly increased L eye pain with left lateral gaze, pt has difficult time determining if truly worse or not), + pertinent finding (Pt seems unable to keep his eyes focused in one direction for longer than a few moments. While talking to him, his eyes often break focus and roll before focusing back on me. However, EOMI) ENT: normal ENT inspection, hearing grossly normal, pharynx normal Neck: supple, no JVD, trachea midline Respiratory/Chest: lungs clear, normal breath sounds, no respiratory distress, + decreased breath sounds Cardiovascular: no gallop, + systolic murmur, + irregularly irregular Abdomen: normal bowel sounds, non tender, soft Extremities: non-tender, normal inspection, + swelling (1+ pitting edema in RLE ) Neurologic/Psychiatric: alert, normal mood/affect, oriented x 3 (but seems easily confused) Skin: normal color, warm/dry, no rash (Lori Sims ., KIZZY) Laboratory Results Last 24 Hours Test 12/15/16 22:00 12/15/16 22:36 12/15/16 23:00 12/16/16 02:10 White Blood Count 10.34 K/uL Red Blood Count 4.03 M/uL Hemoglobin 10.8 g/dL Hematocrit 35.0 % Mean Corpuscular Volume 86.8 fL Mean Corpuscular Hemoglobin 26.8 pg Mean Corpuscular Hemoglobin Concent 30.9 g/dl Platelet Count 215 K/uL Mean Platelet Volume 9.5 fL Neutrophils (%) (Auto) 74.3 % Lymphocytes (%) (Auto) 11.6 % Monocytes (%) (Auto) 11.1 % Eosinophils (%) (Auto) 2.3 % Basophils (%) (Auto) 0.3 % Neutrophils # (Auto) 7.68 K/uL Lymphocytes # (Auto) 1.20 K/uL Monocytes # (Auto) 1.15 K/uL Eosinophils # (Auto) 0.24 K/uL Basophils # (Auto) 0.03 K/uL RDW Standard Deviation 54.6 fL RDW Coefficient of Variation 17.1 % Immature Granulocyte % (Auto) 0.4 % Immature Granulocyte # (Auto) 0.04 K/uL Nucleated RBC Absolute Count (auto) 0.05 K/uL Nucleated Red Blood Cells % 0.4 % Erythrocyte Sedimentation Rate 28 mm/hr Prothrombin Time 12.9 SECONDS Prothromb Time International Ratio 1.2 Activated Partial Thromboplast Time 42.0 SECONDS Partial Thromboplastin Ratio 1.6 Sodium Level 143 mmol/L Potassium Level 3.5 mmol/L Chloride Level 104 mmol/L Carbon Dioxide Level 26 mmol/L Anion Gap 13.0 mmol/L Blood Urea Nitrogen 10 mg/dl Creatinine 0.47 mg/dl Est Creatinine Clear Calc Drug Dose 179.5 ml/min Estimated GFR () 130.5 Estimated GFR (Non- 112.6 BUN/Creatinine Ratio 21.3 Random Glucose 90 mg/dl Calcium Level 8.5 mg/dl Magnesium Level 1.9 mg/dl Total Bilirubin 0.8 mg/dl Direct Bilirubin 0.3 mg/dl Aspartate Amino Transf (AST/SGOT) 18 U/L Alanine Aminotransferase (ALT/SGPT) 17 U/L Alkaline Phosphatase 64 U/L Total Creatine Kinase 49 U/L Creatine Kinase MB 2.1 ng/ml Creatine Kinase MB Ratio 4.3 Troponin I 0.081 ng/ml Total Protein 6.8 gm/dl Albumin 3.2 gm/dl Procalcitonin < 0.05 ng/mL Thyroid Stimulating Hormone (TSH) 2.240 uIu/ml Urine Color YELLOW Urine Appearance CLEAR Urine pH 6.0 Urine Specific Lindsay 1.020 Urine Protein 1+ Urine Glucose (UA) NEG Urine Ketones NEG Urine Occult Blood NEG Urine Nitrite NEG Urine Bilirubin NEG Urine Urobilinogen POS Urine Leukocyte Esterase NEG Urine RBC 0-4 /hpf Urine WBC 0 /hpf Urine Epithelial Cells 0-5 /lpf Urine Bacteria NEG Influenza Type A (RT-PCR) Neg for Influ A Influenza Type B (RT-PCR) Neg for Influ B Digoxin Level 0.4 ng/ml Test 12/16/16 07:24 White Blood Count 9.40 K/uL Red Blood Count 3.81 M/uL Hemoglobin 10.0 g/dL Hematocrit 32.0 % Mean Corpuscular Volume 84.0 fL Mean Corpuscular Hemoglobin 26.2 pg Mean Corpuscular Hemoglobin Concent 31.3 g/dl Platelet Count 195 K/uL Mean Platelet Volume 8.8 fL Neutrophils (%) (Auto) 70.9 % Lymphocytes (%) (Auto) 13.2 % Monocytes (%) (Auto) 13.5 % Eosinophils (%) (Auto) 1.8 % Basophils (%) (Auto) 0.3 % Neutrophils # (Auto) 6.66 K/uL Lymphocytes # (Auto) 1.24 K/uL Monocytes # (Auto) 1.27 K/uL Eosinophils # (Auto) 0.17 K/uL Basophils # (Auto) 0.03 K/uL RDW Standard Deviation 52.4 fL RDW Coefficient of Variation 17.0 % Immature Granulocyte % (Auto) 0.3 % Immature Granulocyte # (Auto) 0.03 K/uL Sodium Level 144 mmol/L Potassium Level 2.8 mmol/L Chloride Level 102 mmol/L Carbon Dioxide Level 32 mmol/L Anion Gap 10.0 mmol/L Blood Urea Nitrogen 6 mg/dl Creatinine 0.40 mg/dl Est Creatinine Clear Calc Drug Dose 205.4 ml/min Estimated GFR () 139.5 Estimated GFR (Non- 120.3 BUN/Creatinine Ratio 14.8 Random Glucose 80 mg/dl Calcium Level 8.2 mg/dl Total Creatine Kinase 33 U/L Creatine Kinase MB 1.6 ng/ml Creatine Kinase MB Ratio 4.8 Troponin I 0.095 ng/ml Hepatitis C Antibody Screen NEG (Lori Sims ., KIZZY) Assessment and Plan 71 y/o male with a history of recently diagnosed CHF, a-fib, HTN, HLD, hypothyroidism, and rheumatoid arthritis who presented to the ED on 12/15 with worsening shortness of breath x 2 days. C/o left shoulder pain and left eye pain. CXR shows pulmonary edema. EKG shows a-fib, ST depressions in V3-V5. Mildly elevated troponin on arrival at 0.081. CT head and sinuses show complete opacification of left maxillary sinus and left ethmoid air cells. Acute on chronic systolic CHF -Admitted to telemetry -Received 1 dose Lasix 40 mg IV in ED. Urine output 3600 cc -Echo pending -Continue carvedilol 12.5 mg PO BID -Continue Lasix 40 mg IV qd Elevated troponin, anterolateral ST depression--denies any chest pain, likely represents demand ischemia secondary to CHF exacerbation -Continue serial cardiac enzymes -Troponin trending upwards. 0.081 upon arrival, repeat troponin 0.095 -Repeat EKG now Hypokalemia -Potassium 2.8 12/16 -KCl 40 mEq PO TID -Continue to monitor A-fib--still in a-fib on my examination -Digoxin levels subtherapeutic -Continue Digoxin 0.125 mg PO qd and diltiazem 240 mg PO qd -Continue Pradaxa 150 mg PO BID Left eye pain -CT sinuses shows near complete opacification left maxillary and left ethmoid air cells, opacified left ostiomeatal unit, probable destructive changes versus expansile changes left medial maxillary sinus wall. Chronic sinus change vs expansile polypoid change. -Will continue to monitor for persistent or worsening symptoms -Tender over left episcopalian, could represent temporal arteritis, however this seems unlikely due to chronic prednisone use -Possible cluster headache vs early Shingles? -Toradol 15 mg IV q6h prn pain HTN--stable -Continue diltiazem and carvedilol as above HLD -Continue atorvastatin 40 mg PO qd Hypothyroidism -Continue Synthroid 75 mcg PO qd Rheumatoid arthritis -Continue Plaquenil 200 mg PO BID, sulfasalazine 500 mg PO BID, and prednisone 10 mg PO BID DVT prophylaxis -Pradaxa -DAVIAN hose and SCDs Code Status -Level I, FULL RESUSCITATION STATUS (Lori Sims ., PA-C) Attending Attestation: Pt seen/examined, chart reviewed, and care plan d/w KAREY Sims. I agree with the swanson components of her progress note documentation. Pt's sob some better today. main complaint is that of left temporal headache for about 3 days along with mild eye discomfort for about 3 days. had clear drainage from the eye a few days ago - now resolved. vision slightly blurry but improved. denies h/o migraines. VSS, afebrile gen - NAD neck - JVD present eyes - EOMI; PERRLA; no pain with pupillary light reflex; visual vo full by direct confrontation; scleral clear; conjunctiva clear; no drainage head - tender over left temporal artery but no palpable cord or overlying swelling/redness heart - irregular, s1, s2, 2/6 systolic murmur RUSB/apex lungs - course BS b/l, rales both bases abd - soft, NT ext - minimal edema labs - K 2.8 Cr normal A/P: 1. acute/chronic systolic/diastolic CHF - improved. Cont lasix IV daily; reasonable to give 20 or 40mg of lasix daily. Follow BUN/Cr and lytes. await repeat echo. 2. left eye complaints - could be 2nd to prodrome to shingles vs temporal arteritis vs sinusitis. Doubt temporal arteritis as inflammatory markers are normal and he takes chronic prednisone. Sinus disease possible - thus will cover with augmentin. Will d/w ENT the "destructive changes" mentioned in the report - fungal? other? ? 3. hypokalemia - replace, repeat K tonight 4. +troponin - likely demand ischemia in setting of #1. Cardiac cath 2016 without obstructive CAD. Kim LI MD (Trev Li MD)
[2016-12-16] MEDS ORDERED: FUROSEMIDE INJ 40 MG in SYRINGE 0 ML IV ONE (12:30)
[2016-12-16] MEDS ORDERED: CARVEDILOL 12.5 MG TAB PO ONE (12:30)
[2016-12-16] MEDS: ACETAMINOPHEN 325 MG TAB PO PRN (14:06)
--- NOTE | 2016-12-16 14:45 | ECHOCARDIOGRAM REPORT ---
*NOTICE TO RECEIVING [employer] This information is strictly Confidential and protected under [place] law. [place] law prohibits you from making any further disclosure of this information unless further disclosure is expressly permitted by the written consent of the person to whom it pertains or is authorized by law. A general authorization for the release of medical or other information is not sufficient for this purpose. Hospital accepts no responsibility if the information is made available to any other person, INCLUDING THE PATIENT. Interpretation Summary * Name: MELY ABAD Study Date: 12/16/2016 06:37 AM BP: 137/89 mmHg * Patient Location: C.2T\S\S230\S\1 HR: 79 * : 1945 (M/d/yyyy) Gender: Male Height: 76 in * Age: 71 yrs Ethnicity: [place] Weight: 211 lb * Ordering Physician: Rashard Voss * Referring Physician: Self, Referred * Performed By: Leticia Lagunas RDCS * * Reason For Study: CHF * BSA: 2.3 m2 * History: CHF * -- Conclusions -- * 1. Borderline dilated LV. Mild concentric LVH. * 2. Moderate LV dysfunction. LVEF 35-40%. Akinetic inferior, mid inferolateral wall. Severe anteroseptal, septal hypokinesis. * 3. Grade III diastolic dysfunction. * 4. Normal RV size with moderate RV dysfunction. * 5. Moderate (low flow) aortic stenosis (PV 2.8 m/s, MG 18 mmHg, ASHLEY 1.2 cm2, DI 0.29, SVI 23.9) * 6. Mild eccentric mitral regurgitation. * 7. Mild pulmonary hyperension (PASP 40-45mmHg, Est RA 8 mmHg). * 8. Compared with prior study on 09/05/2016: LV less dilated with mildly improved function. Procedure Details * A contrast injection of Definity was performed to improve assessment of LV function. * Contrast was injected into an intravenous site in the left arm. * One vial of Definity ultrasound contrast was diluted in normal saline to a total volume of 10 ml. A total of '3' ml of solution was administered during imaging. * Lot # [id number] of Definity utilized for procedure. * Expiration date DEC 21. * The attending nurse who injected the contrast agent was ANKIT RODRIGES RN. Left Ventricle * The left ventricle is borderline dilated. * There is mild concentric left ventricular hypertrophy. * Ejection Fraction = 35-40%. * There is inferior wall akinesis. * Mid inferolateral akinesis. Severe septal, anteroseptal hypokinesis. Right Ventricle * There is a pacemaker lead in the right ventricle. * The right ventricle is grossly normal size. * The right ventricular systolic function is moderately reduced. Atria * The left atrium is severely dilated. * The right atrium is mildly dilated. * No ASD detected; PFO is not assessed. Mitral Valve * The mitral valve is grossly normal. * There is no mitral valve stenosis. * There is mild mitral regurgitation. * The mitral regurgitant jet is eccentrically directed. Tricuspid Valve * The tricuspid valve is not well visualized. * There is no tricuspid stenosis. * There is trace tricuspid regurgitation. Aortic Valve * Moderate valvular aortic stenosis. * Trace aortic regurgitation. Pulmonic Valve * The pulmonary valve is inadequately visualized, but the Doppler data is adequate for interpretation. * Pulmonic stenosis is absent. * There is no pulmonic valvular regurgitation. Great Vessels * The aortic root and proximal ascending aorta are normal sized. Pericardium/Pleural * There is no pericardial effusion. * There is no pleural effusion. Great Vessels * IVC > 2.1, > 50% change with respiration. Est RA pressure 8 mmHg Left Ventricular Diastolic Function * Diastolic dysfunction, Grade III (restrictive pattern), consistent with markedly increased left atrial pressure. MMode 2D Measurements and Calculations IVSd 1.2 cm IVSs 1.7 cm LVIDd 5.3 cm LVIDs 4.2 cm LVPWd 1.7 cm LVPWs 2.0 cm IVS/LVPW 0.71 FS 20.5 % EDV(Teich) 134.7 ml ESV(Teich) 78.8 ml EF(Teich) 41.6 % EDV(cubed) 148.0 ml ESV(cubed) 74.3 ml EF(cubed) 49.8 % % IVS thick 45.9 % % LVPW thick 18.4 % LV mass(C)d 325.3 grams LV mass(C)dI 143.5 grams/m\S\2 LV mass(C)s 348.7 grams LV mass(C)sI 153.9 grams/m\S\2 SV(Teich) 56.0 ml SI(Teich) 24.7 ml/m\S\2 SV(cubed) 73.7 ml SI(cubed) 32.5 ml/m\S\2 LA dimension 4.9 cm LVOT diam 2.3 cm LVOT area 4.2 cm\S\2 LVAd ap4 47.9 cm\S\2 LVLd ap4 10.6 cm EDV(MOD-sp4) 179.0 ml LVAs ap4 33.2 cm\S\2 LVLs ap4 9.2 cm ESV(MOD-sp4) 102.0 ml EF(MOD-sp4) 43.0 % LVAd ap2 46.5 cm\S\2 LVLd ap2 11.0 cm EDV(MOD-sp2) 162.0 ml LVAs ap2 33.2 cm\S\2 LVLs ap2 10.5 cm ESV(MOD-sp2) 91.7 ml EF(MOD-sp2) 43.4 % SV(MOD-sp4) 77.0 ml SI(MOD-sp4) 34.0 ml/m\S\2 SV(MOD-sp2) 70.3 ml SI(MOD-sp2) 31.0 ml/m\S\2 Doppler Measurements and Calculations MV E max alonso 126.1 cm/sec MV dec time 0.10 sec Ao V2 max 272.6 cm/sec Ao max PG 29.8 mmHg Ao max PG (full) 27.7 mmHg Ao V2 mean 199.6 cm/sec Ao mean PG 17.6 mmHg Ao mean PG (full) 16.3 mmHg Ao V2 VTI 45.2 cm ASHLEY(I,A) 1.2 cm\S\2 ASHLEY(I,D) 1.2 cm\S\2 ASHLEY(V,A) 1.1 cm\S\2 ASHLEY(V,D) 1.1 cm\S\2 LV V1 max PG 2.1 mmHg LV V1 mean PG 1.3 mmHg LV V1 max 72.2 cm/sec LV V1 mean 53.4 cm/sec LV V1 VTI 13.2 cm MR max alonso 481.2 cm/sec MR max PG 92.6 mmHg SV(LVOT) 54.9 ml SI(LVOT) 24.2 ml/m\S\2 TR max alonso 287.8 cm/sec
[2016-12-16] MEDS: DIGOXIN 0.125 MG TAB PO SCH (15:30)
[2016-12-16] MEDS: POTASSIUM CHLORIDE 20 MEQ TABCR PO SCH ×2 (15:30→20:30)
[2016-12-16] MEDS: KETOROLAC TROMETHAMINE 15 MG/ML VIAL IV PRN ×2 (15:31→23:09)
[2016-12-16 20:25] LABS: CKMB/CK RATIO 4.6 (0-3.0)
[2016-12-16] MEDS: CARVEDILOL 12.5 MG TAB PO SCH (20:28)
[2016-12-16] MEDS: RANITIDINE HCL 150 MG TAB PO SCH (20:29)
[2016-12-16] MEDS: ARTIFICIAL TEARS OP OINT 3.5 GM TUBE OPB SCH (20:30)
[2016-12-16] MEDS ORDERED: AMOXICILLIN/CLAVULANATE TAB 875 MG TAB PO ONE (20:30)
[2016-12-16 21:42] LABS: MAGNESIUM 1.9 mg/dl (1.8-2.4); POTASSIUM 3.9 mmol/L (3.5-5.1)
[2016-12-17] VITALS (7 sets, daily range): BP systolic 90–114; BP diastolic 53–74; PULSE 70–82; TEMP 36.4–37; O2SAT 91–99
[2016-12-17] MEDS: ALUMINUM/MAGNESIUM/SIMETH (MAALOX MAX) 30 ML UDC PO PRN (01:50)
[2016-12-17 02:10] LABS: CKMB/CK RATIO 5.7 (0-3.0)
[2016-12-17] MEDS: LEVOTHYROXINE 75 MCG TAB PO SCH (05:33)
[2016-12-17 06:59] LABS: BASO % 0.1 %; BASO ABS # 0.01 K/uL (0-0.2); COMPLETE YES; EOS % 0.3 %; HEMATOCRIT 32.4 % (42-52); IG% 0.2 %; LYMPH % 8.8 %; LYMPH ABS # 0.79 K/uL (1.2-3.4); MEAN CELL VOLUME 85.9 fL (80-100); MEAN CORPUSCULAR HGB CONC 30.2 g/dl (32-36); MEAN PLATELET VOLUME 8.9 fL (7.4-10.4); MONO % 9.2 %; NEUT % 81.4 %; PLATELET COUNT 194 K/uL (130-400); RED BLOOD COUNT 3.77 M/uL (4.7-6.1); WHITE BLOOD COUNT 8.95 K/uL (4.8-10.8)
[2016-12-17] MEDS: IPRATROPIUM BROMIDE/ALBUTEROL respimat INH INH PRN (07:22)
[2016-12-17] MEDS: AMOXICILLIN/CLAVULANATE TAB 875 MG TAB PO SCH ×2 (07:24→17:18)
[2016-12-17 07:33] LABS: CALCIUM 8.5 mg/dl (8.5-10.1); POTASSIUM 4.3 mmol/L (3.5-5.1)
[2016-12-17 07:45] LABS: BUN/CREATININE RATIO 23.5 (10-20); CREATININE 0.46 mg/dl (0.60-1.40)
[2016-12-17] MEDS ORDERED: FUROSEMIDE INJ 40 MG in SYRINGE 0 ML IV ONE (08:15)
[2016-12-17] MEDS: ATORVASTATIN 20 MG TAB PO SCH (08:41)
[2016-12-17] MEDS: CALCIUM 600MG + VIT D 400 IU TAB PO SCH ×3 (08:41→21:24)
[2016-12-17] MEDS: SULFASALAZINE 500 MG TABEC PO SCH ×3 (08:41→21:24)
[2016-12-17] MEDS: PAROXETINE 20 MG TAB PO SCH (08:41)
[2016-12-17] MEDS: ASPIRIN 81 MG ECTAB PO SCH (08:41)
[2016-12-17] MEDS: HYDROXYCHLOROQUINE SULFATE 200 MG TAB PO SCH ×3 (08:42→21:25)
[2016-12-17] MEDS: POTASSIUM CHLORIDE 20 MEQ TABCR PO SCH (08:42)
[2016-12-17] MEDS: DABIGATRAN ELEXILATE 75 MG CAP PO SCH ×3 (08:42→21:25)
[2016-12-17] MEDS: CARVEDILOL 12.5 MG TAB PO SCH ×3 (08:43→21:00)
[2016-12-17] MEDS: DILTIAZEM HCL 120 MG EXT REL CAP PO SCH (08:43)
[2016-12-17] MEDS: PANTOprazole SOD 40 MG TAB PO SCH (08:43)
[2016-12-17] MEDS ORDERED: FUROSEMIDE INJ 40 MG in SYRINGE 0 ML IV SCH (09:00)
[2016-12-17] MEDS: KETOROLAC TROMETHAMINE 15 MG/ML VIAL IV PRN ×2 (12:06→20:11)
[2016-12-17] MEDS: DIGOXIN 0.125 MG TAB PO SCH (17:19)
[2016-12-17] MEDS ORDERED: FUROSEMIDE INJ 20 MG in SYRINGE 0 ML IV ONE (18:45)
[2016-12-17] MEDS: RANITIDINE HCL 150 MG TAB PO SCH ×2 (20:21→21:24)
[2016-12-17] MEDS: ARTIFICIAL TEARS OP OINT 3.5 GM TUBE OPB SCH (20:21)
[2016-12-17] MEDS: ACETAMINOPHEN 325 MG TAB PO PRN (21:28)
[2016-12-18] VITALS (8 sets, daily range): BP systolic 93–125; BP diastolic 58–87; PULSE 61–92; TEMP 36.3–37; O2SAT 93–97
[2016-12-18] MEDS: KETOROLAC TROMETHAMINE 15 MG/ML VIAL IV PRN ×4 (02:12→21:03)
[2016-12-18] MEDS: IPRATROPIUM BROMIDE/ALBUTEROL respimat INH INH PRN (03:31)
[2016-12-18] MEDS: LEVOTHYROXINE 75 MCG TAB PO SCH (06:15)
[2016-12-18] MEDS: SULFASALAZINE 500 MG TABEC PO SCH ×2 (06:15→20:59)
[2016-12-18] MEDS: ACETAMINOPHEN 325 MG TAB PO PRN ×2 (06:16→12:53)
[2016-12-18 06:20] LABS: BASO % 0.3 %; BASO ABS # 0.03 K/uL (0-0.2); COMPLETE YES; EOS % 1.1 %; HEMATOCRIT 31.8 % (42-52); IG% 0.2 %; LYMPH % 10.6 %; LYMPH ABS # 0.94 K/uL (1.2-3.4); MEAN CORPUSCULAR HEMOGLOBIN 25.7 pg (25-34); MEAN CORPUSCULAR HGB CONC 30.2 g/dl (32-36); MONO % 9.9 %; NEUT % 77.9 %; PLATELET COUNT 194 K/uL (130-400); RED BLOOD COUNT 3.74 M/uL (4.7-6.1); WHITE BLOOD COUNT 8.87 K/uL (4.8-10.8)
--- NOTE | 2016-12-18 06:32 | Progress Note ---
Subjective Date of Service: late entry for visit on Dec 17, 2016. Subjective Pt evaluation today including: conversation w/ patient, physical exam, chart review, lab review, conversation w/ urban design consultant (EP/cardiology), review of inpatient medication list Pain: none PO Intake: normal Voiding: no voiding problems overall feeling better less dyspnea less orthopnea tele - a. fib, rates largely controlled; no pauses or significant tachycardia headache over left eye improved Problem List Medical Problems: (1) CHF (congestive heart failure) Status: Acute (2) Chronic sinusitis Status: Acute (3) COPD (chronic obstructive pulmonary disease) Status: Acute (4) Elevated troponin Status: Acute (5) Hypoxia Status: Acute (6) NSTEMI (non-ST elevated myocardial infarction) Status: Acute Review of Systems Constitutional: No fever Respiratory: + dyspnea on exertion, No dyspnea at rest Cardiac: No chest pain, No orthopnea Abdomen: No pain Objective Vital Signs Date Time Temp Pulse Resp B/P Pulse Ox O2 Delivery O2 Flow Rate FiO2 12/18/16 04:00 93 Room Air 12/18/16 04:00 36.3 75 20 109/68 93 Room Air 12/18/16 00:19 37.0 79 18 100/58 93 Room Air 12/18/16 00:00 93 Room Air 12/17/16 21:36 82 96/66 12/17/16 20:00 37.0 75 103/67 95 Room Air 12/17/16 20:00 95 Room Air 12/17/16 17:19 91 12/17/16 16:00 Room Air 12/17/16 14:52 36.4 70 23 108/67 93 Room Air 12/17/16 12:00 Nasal Cannula 3.0 12/17/16 11:30 36.6 70 18 107/73 98 Nasal Cannula 3.0 12/17/16 08:00 Nasal Cannula 3.0 12/17/16 07:50 36.6 87 102/70 99 Nasal Cannula 3.0 Physical Exam General Appearance: no apparent distress ENT: pharynx normal Neck: + JVD (but markedly improved) Respiratory/Chest: no respiratory distress, no accessory muscle use, + rales ( bases) Cardiovascular: no gallop, + irregularly irregular Abdomen: normal bowel sounds, non tender, soft, no organomegaly Extremities: no pedal edema Neurologic/Psychiatric: alert, oriented x 3 Laboratory Results Last 24 Hours Test 12/17/16 06:30 12/18/16 05:56 12/18/16 06:04 White Blood Count 8.95 K/uL 8.87 K/uL Red Blood Count 3.77 M/uL 3.74 M/uL Hemoglobin 9.8 g/dL 9.6 g/dL Hematocrit 32.4 % 31.8 % Mean Corpuscular Volume 85.9 fL 85.0 fL Mean Corpuscular Hemoglobin 26.0 pg 25.7 pg Mean Corpuscular Hemoglobin Concent 30.2 g/dl 30.2 g/dl Platelet Count 194 K/uL 194 K/uL Mean Platelet Volume 8.9 fL 9.0 fL Neutrophils (%) (Auto) 81.4 % 77.9 % Lymphocytes (%) (Auto) 8.8 % 10.6 % Monocytes (%) (Auto) 9.2 % 9.9 % Eosinophils (%) (Auto) 0.3 % 1.1 % Basophils (%) (Auto) 0.1 % 0.3 % Neutrophils # (Auto) 7.28 K/uL 6.90 K/uL Lymphocytes # (Auto) 0.79 K/uL 0.94 K/uL Monocytes # (Auto) 0.82 K/uL 0.88 K/uL Eosinophils # (Auto) 0.03 K/uL 0.10 K/uL Basophils # (Auto) 0.01 K/uL 0.03 K/uL RDW Standard Deviation 53.6 fL 52.8 fL RDW Coefficient of Variation 17.1 % 17.0 % Immature Granulocyte % (Auto) 0.2 % 0.2 % Immature Granulocyte # (Auto) 0.02 K/uL 0.02 K/uL Sodium Level 143 mmol/L Potassium Level 4.3 mmol/L Chloride Level 104 mmol/L Carbon Dioxide Level 32 mmol/L Anion Gap 7.0 mmol/L Blood Urea Nitrogen 11 mg/dl Creatinine 0.46 mg/dl Est Creatinine Clear Calc Drug Dose 178.6 ml/min Estimated GFR () 131.7 Estimated GFR (Non- 113.6 BUN/Creatinine Ratio 23.5 Random Glucose 131 mg/dl Calcium Level 8.5 mg/dl Assessment and Plan 71yo male: 1. acute/chronic systolic/diastolic CHF - improved once again. Cont lasix IV BID. Follow BUN/Cr and lytes. ECHO shows modest improvement in EF. . Grade 3 diastolic dysfunction. 2. left eye complaints - could be 2nd to prodrome to shingles vs temporal arteritis vs sinusitis. Doubt temporal arteritis as inflammatory markers are normal and he takes chronic prednisone. Sinus disease possible - covering with augmentin, day #2. Will d/w ENT the "destructive changes" mentioned in the report - fungal? other? ? 3. hypokalemia - resolved; cut K dose back some. 4. +troponin - likely demand ischemia in setting of #1. Cardiac cath 2016 without obstructive CAD. 5. aortic stenosis - avoid over-diuresis, significant afterload reducers, etc. No symptoms from such. 6. a. fib - rates controlled today after fixing #3. On BB, CCB, digoxin. On pradaxa for anticoagulation. 7. rheumatoid arthritis - controlled on chronic prednisone, etc. 8. left-sided sinusitis - day #2 augmentin. 9. hyperlipidemia - statin. 10. DVT proph - pradaxa BID. PT, OT evals to help with disposition progressing wean O2 off leave on tele Continued [facility] stay due to: ambulation difficulties, multiple IV medications needed Discharge planning: uncertain
[2016-12-18 06:50] LABS: BUN/CREATININE RATIO 36.2 (10-20); CALCIUM 8.3 mg/dl (8.5-10.1); CREATININE 0.58 mg/dl (0.60-1.40); POTASSIUM 4.6 mmol/L (3.5-5.1)
[2016-12-18 06:56] LABS: MAGNESIUM 2.2 mg/dl (1.8-2.4)
[2016-12-18] MEDS: AMOXICILLIN/CLAVULANATE TAB 875 MG TAB PO SCH ×2 (07:57→16:27)
[2016-12-18] MEDS: ASPIRIN 81 MG ECTAB PO SCH (07:58)
[2016-12-18] MEDS: CALCIUM 600MG + VIT D 400 IU TAB PO SCH ×2 (07:58→20:59)
[2016-12-18] MEDS: CARVEDILOL 12.5 MG TAB PO SCH ×2 (07:58→20:59)
[2016-12-18] MEDS: PAROXETINE 20 MG TAB PO SCH (07:59)
[2016-12-18] MEDS: HYDROXYCHLOROQUINE SULFATE 200 MG TAB PO SCH ×2 (07:59→21:00)
[2016-12-18] MEDS: DABIGATRAN ELEXILATE 75 MG CAP PO SCH ×2 (07:59→21:00)
[2016-12-18] MEDS: ATORVASTATIN 20 MG TAB PO SCH (07:59)
[2016-12-18] MEDS: POTASSIUM CHLORIDE 20 MEQ TABCR PO SCH (07:59)
[2016-12-18] MEDS: DILTIAZEM HCL 120 MG EXT REL CAP PO SCH (08:00)
[2016-12-18] MEDS: PANTOprazole SOD 40 MG TAB PO SCH (08:00)
--- NOTE | 2016-12-18 11:42 | Hospitalist Progress Note ---
Hospitalist Progress Note Date of Service Dec 18, 2016. (Lori Sims ., KIZZY) Subjective Pt evaluation today including: conversation w/ patient, physical exam, chart review, lab review, review of inpatient medication list Pain: None PO Intake: Tolerating PO diet Voiding: no voiding problems Patient reports feeling better. He currently denies any shortness of breath, however he states that he did have an episode of dyspnea earlier this morning which resolved after taking his Combivent inhaler. He complains of a mild 1/10 dull aching pain in his left eye and left zoroastrianism, which is much improved. He denies any headache. He does complain of trouble sleeping as he is a very light sleeper, and there is a lot of noise around him at night. He is requesting a sleeping aid while he is in the hospital. The patient denies fevers, chills, sweats, chest pain, palpitations, claudication, cough, wheezing , shortness of breath, nausea, vomiting, abdominal pain, dysuria, hematuria, urinary retention, paralysis, weakness, numbness and tingling. Additional Comments: See HPI for pertinent positives and negatives. All other systems reviewed and negative. (Lori Sims ., KIZZY) Objective Vital Signs Date Time Temp Pulse Resp B/P Pulse Ox O2 Delivery O2 Flow Rate FiO2 12/18/16 08:00 97 Nasal Cannula 3.0 12/18/16 08:00 36.5 71 18 116/75 97 Nasal Cannula 3.0 12/18/16 04:00 93 Room Air 12/18/16 04:00 36.3 75 20 109/68 93 Room Air 12/18/16 00:19 37.0 79 18 100/58 93 Room Air 12/18/16 00:00 93 Room Air 12/17/16 21:36 82 96/66 12/17/16 20:00 37.0 75 103/67 95 Room Air 12/17/16 20:00 95 Room Air 12/17/16 17:19 91 12/17/16 16:00 Room Air 12/17/16 14:52 36.4 70 23 108/67 93 Room Air 12/17/16 12:00 Nasal Cannula 3.0 12/17/16 11:30 36.6 70 18 107/73 98 Nasal Cannula 3.0 (Lori Sims ., PA-C) Physical Exam General Appearance: WD/WN, no apparent distress Eyes: normal inspection, PERRL, EOMI, + pertinent finding (left zoroastrianism mildly TTP, improved) ENT: normal ENT inspection, hearing grossly normal, pharynx normal Neck: supple, no JVD, trachea midline Respiratory/Chest: lungs clear, normal breath sounds, no respiratory distress, + decreased breath sounds Cardiovascular: no gallop, no murmur, + irregularly irregular (rate controlled) Abdomen: normal bowel sounds, non tender, soft Extremities: non-tender, normal inspection, no pedal edema Neurologic/Psychiatric: alert, normal mood/affect, oriented x 3 Skin: normal color, warm/dry, no rash (Lori Sims ., PA-C) Laboratory Results Last 24 Hours Test 12/18/16 05:56 White Blood Count 8.87 K/uL Red Blood Count 3.74 M/uL Hemoglobin 9.6 g/dL Hematocrit 31.8 % Mean Corpuscular Volume 85.0 fL Mean Corpuscular Hemoglobin 25.7 pg Mean Corpuscular Hemoglobin Concent 30.2 g/dl Platelet Count 194 K/uL Mean Platelet Volume 9.0 fL Neutrophils (%) (Auto) 77.9 % Lymphocytes (%) (Auto) 10.6 % Monocytes (%) (Auto) 9.9 % Eosinophils (%) (Auto) 1.1 % Basophils (%) (Auto) 0.3 % Neutrophils # (Auto) 6.90 K/uL Lymphocytes # (Auto) 0.94 K/uL Monocytes # (Auto) 0.88 K/uL Eosinophils # (Auto) 0.10 K/uL Basophils # (Auto) 0.03 K/uL RDW Standard Deviation 52.8 fL RDW Coefficient of Variation 17.0 % Immature Granulocyte % (Auto) 0.2 % Immature Granulocyte # (Auto) 0.02 K/uL Sodium Level 141 mmol/L Potassium Level 4.6 mmol/L Chloride Level 105 mmol/L Carbon Dioxide Level 27 mmol/L Anion Gap 9.0 mmol/L Blood Urea Nitrogen 21 mg/dl Creatinine 0.58 mg/dl Est Creatinine Clear Calc Drug Dose 141.6 ml/min Estimated GFR () 119.7 Estimated GFR (Non- 103.3 BUN/Creatinine Ratio 36.2 Random Glucose 110 mg/dl Calcium Level 8.3 mg/dl Magnesium Level 2.2 mg/dl (Lori Sims ., KIZZY) Assessment and Plan 71 y/o male with a history of recently diagnosed CHF, a-fib, HTN, HLD, hypothyroidism, and rheumatoid arthritis who presented to the ED on 12/15 with worsening shortness of breath x 2 days. C/o left shoulder pain and left eye pain. CXR shows pulmonary edema. EKG shows a-fib, ST depressions in V3-V5. Mildly elevated troponin on arrival at 0.081. CT head and sinuses show complete opacification of left maxillary sinus and left ethmoid air cells. Acute on chronic systolic CHF -Admitted to telemetry -Received 1 dose Lasix 40 mg IV in ED. Urine output 3600 cc -Echo: compared to study on 09/05/2016, LV is less dilated and has mildly improved function -Continue carvedilol 12.5 mg PO BID -Hold IV Lasix today as urine output much reduced on 12/17, continue to monitor Elevated troponin, anterolateral ST depression--denies any chest pain, likely represents demand ischemia secondary to CHF exacerbation -Continue serial cardiac enzymes -Troponin trending downwards with peak at 0.095. Last troponin 0.069 Hypokalemia--resolved -Potassium 2.8 12/16 -KCl 40 mEq PO TID, d/c' after 12/16 and maintained on KCl 40 mEq PO qd -Repeat potassium later on 12/16 up to 3.9 and has remained stable -Continue to monitor A-fib--still in a-fib on my examination -Digoxin levels subtherapeutic -Continue Digoxin 0.125 mg PO qd and diltiazem 240 mg PO qd -Continue Pradaxa 150 mg PO BID Left eye pain--improving -CT sinuses shows near complete opacification left maxillary and left ethmoid air cells, opacified left ostiomeatal unit, probable destructive changes versus expansile changes left medial maxillary sinus wall. Chronic sinus change vs expansile polypoid change. -Will continue to monitor for persistent or worsening symptoms -Tender over left zoroastrianism, could represent temporal arteritis, however this seems unlikely due to chronic prednisone use -Possible cluster headache vs early Shingles? -Toradol 15 mg IV q6h prn pain -Continue Augmentin 875 mg PO BID for sinusitis. Day #3, started evening of 2/ 13. Pt's pain is improving as sinuses are clearing, reassuring that pain is secondary to sinusitis HTN--stable -Continue diltiazem and carvedilol as above HLD -Continue atorvastatin 40 mg PO qd Hypothyroidism -Continue Synthroid 75 mcg PO qd Rheumatoid arthritis -Continue Plaquenil 200 mg PO BID, sulfasalazine 500 mg PO BID, and prednisone 10 mg PO BID DVT prophylaxis -Pradaxa -DAVIAN hose and SCDs Code Status -Level I, FULL RESUSCITATION STATUS (Lori Sims ., PA-C) Attending Attestation: Pt seen/examined, chart reviewed, care plan d/w PA Lori Sims. I agree w/ the swanson components of her documentation. Pt feels very good - "better than I have in a while". Denies orthopnea or MANNING. VSS, afebrile gen - nad neck - JVD resolved heart - irregular, s1, s2 lungs - CTA b/l, mildly decreased BS bases abd - soft ext - no edema BUN/Cr mildly increased relative to yesterday's values 71yo male: 1. acute/chronic systolic/diastolic CHF - acute component appears resolved. Stop IV lasix. ECHO shows modest improvement in EF. Grade 3 diastolic dysfunction. 2. left eye complaints - suspect 2nd to sinusitis. Rx w/ augmentin, day #3. Plan 10 day course. Will d/w ENT the "destructive changes" mentioned in the CT scan report - fungal ? other?? 3. hypokalemia - resolved. 4. +troponin - likely demand ischemia in setting of #1. Cardiac cath 2016 without obstructive CAD. 5. aortic stenosis - avoid over-diuresis, significant afterload reducers, etc. No symptoms from such. 6. a. fib - rates controlled. On BB, CCB, digoxin. On pradaxa for anticoagulation. 7. rheumatoid arthritis - controlled on chronic prednisone, etc. 8. left-sided sinusitis - day #3 augmentin. 9. hyperlipidemia - statin. 10. DVT proph - pradaxa BID. PT, OT have cleared pt for home left message for son on evening of 12/18/16 d/c tomorrow? Kim LI MD (Trev Li MD)
[2016-12-18] MEDS ORDERED: ZOLPIDEM TARTRATE 5 MG TAB PO PRN (11:45)
[2016-12-18] MEDS: DIGOXIN 0.125 MG TAB PO SCH (16:27)
[2016-12-18] MEDS: ALUMINUM/MAGNESIUM/SIMETH (MAALOX MAX) 30 ML UDC PO PRN (18:07)
[2016-12-18] MEDS: LACTOBACILLUS ACIDOPHILUS (FLORANEX) TAB PO SCH (19:02)
[2016-12-18] MEDS: ARTIFICIAL TEARS OP OINT 3.5 GM TUBE OPB SCH (20:59)
[2016-12-18] MEDS: RANITIDINE HCL 150 MG TAB PO SCH (21:00)
[2016-12-19 00:01] VITALS: O2SAT 95
[2016-12-19 03:18] VITALS: BP 113/69; PULSE 75; TEMP 36.6; O2SAT 92
[2016-12-19 04:00] VITALS: O2SAT 92
[2016-12-19] MEDS: LEVOTHYROXINE 75 MCG TAB PO SCH (04:23)
[2016-12-19] MEDS: LOPERAMIDE HCL 2 MG CAP PO PRN ×2 (04:23→13:29)
[2016-12-19] MEDS: ACETAMINOPHEN 325 MG TAB PO PRN (04:26)
[2016-12-19] MEDS: IPRATROPIUM BROMIDE/ALBUTEROL respimat INH INH PRN ×2 (05:30→13:14)
[2016-12-19 06:23] LABS: HEMATOCRIT 32.4 % (42-52); MEAN CELL VOLUME 86.4 fL (80-100); MEAN CORPUSCULAR HEMOGLOBIN 26.4 pg (25-34); MEAN CORPUSCULAR HGB CONC 30.6 g/dl (32-36); MEAN PLATELET VOLUME 9.2 fL (7.4-10.4); PLATELET COUNT 222 K/uL (130-400); RED BLOOD COUNT 3.75 M/uL (4.7-6.1); WHITE BLOOD COUNT 11.03 K/uL (4.8-10.8)
[2016-12-19 07:03] LABS: BUN/CREATININE RATIO 30.3 (10-20); CALCIUM 8.5 mg/dl (8.5-10.1); CREATININE 0.63 mg/dl (0.60-1.40); POTASSIUM 4.9 mmol/L (3.5-5.1)
[2016-12-19 07:56] VITALS: BP 122/73; PULSE 86; TEMP 36.7; O2SAT 91
[2016-12-19] MEDS: AMOXICILLIN/CLAVULANATE TAB 875 MG TAB PO SCH ×2 (08:09→15:23)
[2016-12-19] MEDS: CALCIUM 600MG + VIT D 400 IU TAB PO SCH (08:12)
[2016-12-19] MEDS: POTASSIUM CHLORIDE 20 MEQ TABCR PO SCH (08:12)
[2016-12-19] MEDS: PAROXETINE 20 MG TAB PO SCH (08:13)
[2016-12-19] MEDS: CARVEDILOL 12.5 MG TAB PO SCH (08:13)
[2016-12-19] MEDS: ASPIRIN 81 MG ECTAB PO SCH (08:14)
[2016-12-19] MEDS: ATORVASTATIN 20 MG TAB PO SCH (08:14)
[2016-12-19] MEDS: HYDROXYCHLOROQUINE SULFATE 200 MG TAB PO SCH (08:15)
[2016-12-19] MEDS: LACTOBACILLUS ACIDOPHILUS (FLORANEX) TAB PO SCH ×3 (08:15→15:22)
[2016-12-19] MEDS: SULFASALAZINE 500 MG TABEC PO SCH (08:16)
[2016-12-19] MEDS: DILTIAZEM HCL 120 MG EXT REL CAP PO SCH (08:16)
[2016-12-19] MEDS: DABIGATRAN ELEXILATE 75 MG CAP PO SCH (08:17)
[2016-12-19] MEDS: PANTOprazole SOD 40 MG TAB PO SCH (08:18)
[2016-12-19] MEDS: KETOROLAC TROMETHAMINE 15 MG/ML VIAL IV PRN (09:24)
[2016-12-19 10:15] VITALS: BP 107/78; PULSE 80; TEMP 36.8; O2SAT 91
[2016-12-19] MEDS ORDERED: AMOX1TAB43 PO (12:59)
[2016-12-19] MEDS ORDERED: IMD2X PO (12:59)
[2016-12-19] MEDS ORDERED: LCTX PO (12:59)
--- NOTE | 2016-12-19 13:21 | Discharge Instructions ---
Discharge Instructions Admission Reason for Admission: Acute Chf (Lori Sims PA-C) Discharge Discharge Diagnosis / Problem: Acute congestive heart failure, acute sinusitis (Lori Sims PA-C) Discharge Goals Goal(s): Decrease discomfort, Improve function, Improve disease control, Diagnostic testing, Therapeutic intervention (Lori Sims PA-C) Activity Recommendations Activity Limitations: resume your previous activity (as tolerated) . (Lori Sims PA-C) Instructions / Follow-Up Instructions / Follow-Up You were admitted to the hospital with worsening shortness of breath. A chest x -ray was done showing pulmonary edema, which indicates an acute exacerbation of your chronic congestive heart failure. You were treated with IV Lasix which did help to diurese the excess fluid off and improve your breathing. You were also found to have an acute sinusitis on the left side, which had been causing your pain behind your left eye. You have been treated with an oral antibiotic for the sinusitis and this did help to improve the eye pain as well. You are now medically stable for discharge back to home. Please be sure to watch your sodium intake in your diet to help prevent future exacerbations of your congestive heart failure. It is also important that you take your oral Lasix pill as directed. This current episode occurred after you decreased your Lasix dose from 40 mg to 20 mg. Please continue to take the full Lasix 40 mg dose as prescribed in order to ensure that you keep excessive fluid off and do not develop another exacerbation. Please also be sure to take your potassium supplement as prescribed, as the Lasix lowers potassium in your blood, which can lead to severe consequences. You will still need to continue taking the oral antibiotic for the sinus infection as an outpatient. You have received a total of 6 doses while an inpatient, or the equivalent of 3 full days of treatment. Please take Augmentin (amoxicillin/clavulanate) 875 mg by mouth twice a day with meals for the next 7 days, with the first dose starting on the evening of 12/19 and the last dose on the morning of 12/26. You have also been given prescriptions for a probiotic and an anti-diarrheal medication due to the diarrhea that you developed while on the antibiotic. Please take Floranex (lactobacillus acidophilus) 4 tablets by mouth three times a day with meals for 7 days, as well as Imodium (loperamide) 2 mg by mouth after each loose stool up to every 4 hours. You were found to have hemorrhoids during your hospital stay as well as rectal irritation due to the diarrhea. You have been given prescriptions for Anusol hemorrhoid cream and suppositories to use over the next few days. Please take Anusol 25 mg per rectum every 6 hours for more internal irritation, or apply Anusol 2.5% cream to the rectum every 6 hours for more external irritation. Activity Recommendations: You were evaluated by physical therapy at the hospital, who recommended that you have home physical therapy services since you have required a walker when ambulating in the hospital and had only required a cane prior to admission. Please follow activity recommendations as per physical therapy. Call 911 and go to the Emergency Room if: * You have tightness or pain in your chest that does not go away with rest or Nitroglycerin * You are very short of breath even with rest Call your doctor if any of the following symptoms or problems start or get worse: * Shortness of breath or difficulty breathing * Wake up at night short of breath * Chest pain * Cough * Swelling of your hands, fee, or legs * More fatigued or tired with your normal activity * Palpitations - sudden fast heart beats WEIGHT * Weigh yourself every morning after using the bathroom. * Use the same scale. * Wear the same amount of clothing. * Write your weight down on your chart. * Call your doctor if you gain more than 2-3 pounds in 1-2 days. MEDICATIONS * Use this discharge instruction sheet for instructions. * Take your medications at the time your doctor ordered. * Do not skip a dose of your medicines. * If you miss a dose of medicine, take as soon as possible, but DO NOT DOUBLE A DOSE. * Read your medicine information when you get home. * Know all of the side effects of your medicine. * Call your doctor's office if you have any side effects. * Be sure all of your doctors know what medicine and herbs you take (including cold, flu, and herbal medicine). * Pain Medicine: If you do not get relief from your pain, please call your doctor for help. Take the following with you to your follow-up doctor appointments: * Weight Chart * Medication List * List of questions Do not drink excessive alcohol, beer or wine. Follow up: Please follow up with your primary care provider in the next few days, preferably by FridayDecember 23, to ensure you are maintaining an appropriate fluid balance. Please also follow up with cardiology within 1 week regarding your acute exacerbation of your chronic congestive heart failure. (Lori Sims PA-C) Current Hospital Diet Patient's current hospital diet: AHA Diet (Heart Healthy) (Lori Sims PA-C) Discharge Diet Recommended Diet: AHA Diet (Heart Healthy), Low Sodium Diet (2gm Na) (Lori Sims PA-C) Procedures Procedures Performed: Echocardiogram (Lori Sims PA-C) Pending Studies Studies pending at discharge: no (Lori Sims PA-C) Medical Emergencies . Who to Call and When: Medical Emergencies: If at any time you feel your situation is an emergency, please call 911 immediately. . (Lori Sims PA-C) Non-Emergent Contact Non-Emergency issues call your: Primary Care Provider Call Non-Emergent contact if: you have a fever, your pain is worsening, your pain is concerning you, you have any medication questions . (Lori Sims PA-C) Past History Medical & Surgical History: (1) Acute CHF (2) Acute sinusitis (3) Atrial fibrillation (Lori Sims PA-C) . "Provider Documentation" section prepared by Lori Sims. (Lori Sims PA-C) Attending Attestation: Pt seen & examined with KAREY Sims on the day of discharge and I agree with her discharge instructions as outlined. Trev Li MD (Trev Li MD) VTE Core Measure Inpt VTE Proph given/why not?: Other Anticoagulation (Pradaxa) (Lori Sims PA-C)
--- NOTE | 2016-12-19 13:47 | Discharge Summary ---
Discharge Summary Admission Date: Dec 16, 2016 at 01:08 Discharge Date: Dec 19, 2016 Discharge Disposition: Home with services Principal Diagnosis: Acute CHF exacerbation Problems/Secondary Diagnoses: Acute sinusitis Immunizations: Have You Had Influenza Vaccine: Yes Influenza Vaccine Date: Aug 06, 2013 History of Tetanus Vaccine?: UNK Tetanus Immunization Date: Dec 07, 2012 History of Pneumococcal: No Pneumococcal Date: March 06, 2011 History of Hepatitis B Vaccine: No Hepatitis Immunization Date: March 06, 2012 Procedures: [address] [place] [address] Performing Location: [facility] Patient Name: MELY ABAD Dictating Provider: Lb Zhang MD Dictation Date: Report Signed By: Date: 1945 Practice Lead: GILMA Room/Bed: [facility] Family Physician: Constance Doctor, Assigned SC: C.2T Primary Care Physician: Constance Doctor, Assigned Adm Date: 12/16/16 Attending Physician: Trev Li MD Dis Date: Admitting Physician: Rashard Voss MD Ordering Physician: *NOTICE TO RECEIVING DEMOCRAT AGENCY This information is strictly Confidential and protected under [place] law. [place] law prohibits you from making any further disclosure of this information unless further disclosure is expressly permitted by the written consent of the person to whom it pertains or is authorized by law. A general authorization for the release of medical or other information is not sufficient for this purpose. Hospital accepts no responsibility if the information is made available to any other person, INCLUDING THE PATIENT. Interpretation Summary * Name: MELY ABAD Study Date: 12/16/2016 06:37 AM BP: 137/89 mmHg * Patient Location: 2T\S\S230\S\1 HR: 79 * : 1945 (M/d/yyyy) Gender: Male Height: 76 in * Age: 71 yrs Ethnicity: CA Weight: 211 lb * Ordering Physician: Rashard Voss * Referring Physician: Self, Referred * Performed By: Leticia Lagunas RDCS * * Reason For Study: CHF * BSA: 2.3 m2 * History: CHF * -- Conclusions -- * 1. Borderline dilated LV. Mild concentric LVH. * 2. Moderate LV dysfunction. LVEF 35-40%. Akinetic inferior, mid inferolateral wall. Severe anteroseptal, septal hypokinesis. * 3. Grade III diastolic dysfunction. * 4. Normal RV size with moderate RV dysfunction. * 5. Moderate (low flow) aortic stenosis (PV 2.8 m/s, MG 18 mmHg, ASHLEY 1.2 cm2 , DI 0.29, SVI 23.9) * 6. Mild eccentric mitral regurgitation. * 7. Mild pulmonary hyperension (PASP 40-45mmHg, Est RA 8 mmHg). * 8. Compared with prior study on 09/05/2016: LV less dilated with mildly improved function. Procedure Details * A contrast injection of Definity was performed to improve assessment of LV function. * Contrast was injected into an intravenous site in the left arm. * One vial of Definity ultrasound contrast was diluted in normal saline to a total volume of 10 ml. A total of '3' ml of solution was administered during imaging. * Lot # [id number] of Definity utilized for procedure. * Expiration date 1 DEC 21. * The attending nurse who injected the contrast agent was ANKIT RODRIGES RN. Left Ventricle * The left ventricle is borderline dilated. * There is mild concentric left ventricular hypertrophy. * Ejection Fraction = 35-40%. * There is inferior wall akinesis. * Mid inferolateral akinesis. Severe septal, anteroseptal hypokinesis. Right Ventricle * There is a pacemaker lead in the right ventricle. * The right ventricle is grossly normal size. * The right ventricular systolic function is moderately reduced. Atria * The left atrium is severely dilated. * The right atrium is mildly dilated. * No ASD detected; PFO is not assessed. Mitral Valve * The mitral valve is grossly normal. * There is no mitral valve stenosis. * There is mild mitral regurgitation. * The mitral regurgitant jet is eccentrically directed. Tricuspid Valve * The tricuspid valve is not well visualized. * There is no tricuspid stenosis. * There is trace tricuspid regurgitation. Aortic Valve * Moderate valvular aortic stenosis. * Trace aortic regurgitation. Pulmonic Valve * The pulmonary valve is inadequately visualized, but the Doppler data is adequate for interpretation. * Pulmonic stenosis is absent. * There is no pulmonic valvular regurgitation. Great Vessels * The aortic root and proximal ascending aorta are normal sized. Pericardium/Pleural * There is no pericardial effusion. * There is no pleural effusion. Great Vessels * IVC > 2.1, > 50% change with respiration. Est RA pressure 8 mmHg Left Ventricular Diastolic Function * Diastolic dysfunction, Grade III (restrictive pattern), consistent with markedly increased left atrial pressure. MMode 2D Measurements and Calculations IVSd 1.2 cm IVSs 1.7 cm LVIDd 5.3 cm LVIDs 4.2 cm LVPWd 1.7 cm LVPWs 2.0 cm IVS/LVPW 0.71 FS 20.5 % EDV(Teich) 134.7 ml ESV(Teich) 78.8 ml EF(Teich) 41.6 % EDV(cubed) 148.0 ml ESV(cubed) 74.3 ml EF(cubed) 49.8 % % IVS thick 45.9 % % LVPW thick 18.4 % LV mass(C)d 325.3 grams LV mass(C)dI 143.5 grams/m\S\2 LV mass(C)s 348.7 grams LV mass(C)sI 153.9 grams/m\S\2 SV(Teich) 56.0 ml SI(Teich) 24.7 ml/m\S\2 SV(cubed) 73.7 ml SI(cubed) 32.5 ml/m\S\2 LA dimension 4.9 cm LVOT diam 2.3 cm LVOT area 4.2 cm\S\2 LVAd ap4 47.9 cm\S\2 LVLd ap4 10.6 cm EDV(MOD-sp4) 179.0 ml LVAs ap4 33.2 cm\S\2 LVLs ap4 9.2 cm ESV(MOD-sp4) 102.0 ml EF(MOD-sp4) 43.0 % LVAd ap2 46.5 cm\S\2 LVLd ap2 11.0 cm EDV(MOD-sp2) 162.0 ml LVAs ap2 33.2 cm\S\2 LVLs ap2 10.5 cm ESV(MOD-sp2) 91.7 ml EF(MOD-sp2) 43.4 % SV(MOD-sp4) 77.0 ml SI(MOD-sp4) 34.0 ml/m\S\2 SV(MOD-sp2) 70.3 ml SI(MOD-sp2) 31.0 ml/m\S\2 Doppler Measurements and Calculations MV E max alonso 126.1 cm/sec MV dec time 0.10 sec Ao V2 max 272.6 cm/sec Ao max PG 29.8 mmHg Ao max PG (full) 27.7 mmHg Ao V2 mean 199.6 cm/sec Ao mean PG 17.6 mmHg Ao mean PG (full) 16.3 mmHg Ao V2 VTI 45.2 cm ASHLEY(I,A) 1.2 cm\S\2 ASHLEY(I,D) 1.2 cm\S\2 ASHLEY(V,A) 1.1 cm\S\2 ASHLEY(V,D) 1.1 cm\S\2 LV V1 max PG 2.1 mmHg LV V1 mean PG 1.3 mmHg LV V1 max 72.2 cm/sec LV V1 mean 53.4 cm/sec LV V1 VTI 13.2 cm MR max alonso 481.2 cm/sec MR max PG 92.6 mmHg SV(LVOT) 54.9 ml SI(LVOT) 24.2 ml/m\S\2 TR max alonso 287.8 cm/sec (Lori Sims, PA-C) Problems/Secondary Diagnoses: 1. moderate aortic stenosis 2. pulmonary HTN 3. steroid-dependent rheumatoid arthritis 4. h/o a. fib 5. hemorrhoid 6. type 2 AL / myocardial demand ischemia Procedures: head CT and sinus CT with acute sinusitis (Trev Li MD) Medication Reconciliation New Medications: Hydrocortisone 2.5% (Rectal) (Anusol-Hc 2.5%) 2.5 % Cre 1 APPLN TOP Q6H for 7 Days, #30 GM 1 Refill Hydrocortisone Acetate (Rectal (Anusol-Hc) 25 Mg Sup 25 MG NM Q6H, #7 SUP Misc. Devices (Roller Walker) 1 Mis Mis UNIT MS, #1 Amoxicillin & Pot Clavulanate (Amoxicillin/Clavulanate P) 1 Tab Tab 875 MG PO BIDM for 7 Days, #14 TAB Take 1 tablet by mouth twice day with meals for 7 days. Lactobacillus Acidophilus (Floranex) 1 Tab Tab 4 TAB PO TIDM for 7 Days, #21 TAB Take 4 tablets by mouth three times a day with meals. Loperamide Hcl (Imodium) 2 Mg Cap 2 MG PO Q4H PRN for Diarrhea for 7 Days, #28 CAP Take 1 capsule by mouth after each loose stool, up to every 4 hours. Continued Medications: Artificial Tear Ointment (Lubricant Eye) 1 Oin Oin 1 APPLN OPB HS Aspirin (Aspirin EC Low Dose) 81 Mg Ectab 81 MG PO QAM, #30 Atorvastatin (Lipitor) 40 Mg Tab 1 TAB PO DAILY for 30 Days, #30 TAB 5 Refills Calcium Carbonate-Vitamin D (Calcium 500 + D) 1 Tab Tab 1 TAB PO BID Carvedilol (Carvedilol) 12.5 Mg Tab 12.5 MG PO BID, #60 TAB Cetirizine Hcl (Zyrtec) 10 Mg Tab 10 MG PO DAILY PRN for ALLERGIC REACTION Dabigatran Etexilate Mesylate (Pradaxa) 150 Mg Cap 1 CAP PO BID for 90 Days, #180 CAP 3 Refills Digoxin (Digoxin) 0.125 Mg Tab 0.125 MG PO DAILY@16, #30 TAB Diltiazem Hcl Ext Rel (Tiazac) 240 Mg Capcr 240 MG PO DAILY, CAP Flunisolide (Nasal) (Flunisolide) 0.025 % Spr 2 PUFFS ARIADNA BID PRN for Nasal Congestion Furosemide (Lasix) 40 Mg Tab 40 MG PO DAILY, TAB Guaifenesin (Guaifenesin) 100 Mg/5 Ml Syp 10 ML PO BID PRN for Cough Hydroxychloroquine Sulfate (Plaquenil) 200 Mg Tab 200 MG PO BID Ipratropium/Albuterol (Combivent) Aer 1 PUFFS INH QID PRN for Shortness of Breath Levothyroxine Sodium (Synthroid) 75 Mcg Tab 75 MCG PO DAILY, TAB Morphine Sulfate (Morphine Sulfate Cr) 30 Mg Tab 30 MG PO Q12 PRN for Pain Multivitamins/Minerals (Mvi With Minerals) Tab 1 TAB PO DAILY AT NOON Omeprazole (Prilosec) 20 Mg Capcr 20 MG PO QAM Paroxetine Hcl (Paxil) 40 Mg Tab 40 MG PO QAM Potassium Ext Rel (Klor-Con) 20 Meq Tabcr 20 MEQ PO DAILY, TAB Prednisone (Prednisone Tab) 20 Mg Tab 10 MG PO BID Ranitidine Hcl (Zantac) 150 Mg Tab 150 MG PO HS Sulfasalazine (Sulfasalazine) 500 Mg Tabec 500 MG PO BID Trazodone Hcl (Desyrel) 50 Mg Tab 50 MG PO HS PRN for Sleep Referrals At Discharge Follow up Referrals: [employer] Referral - Within 1 Week with Sheldon Conteh MD Discharge Exam Patient did develop some confusion last night after receiving Ambien 5 mg PO. Confusion resolved by morning and he was alert and oriented x 4 during my examination. He also developed diarrhea last evening and was prescribed a probiotic and Imodium. Patient states that the diarrhea has been slowing down and his stools are becoming more formed. He did note some blood when wiping last evening, but does have a history of hemorrhoids. Hgb stable this morning, actually improved from the day before. Left eye pain is greatly improved, still a mild 1/10 dull aching pain. He denies any other complaints and states that he is ready to go home today. The patient denies fevers, chills, sweats, chest pain, palpitations, claudication, cough, wheezing, shortness of breath, nausea, vomiting, abdominal pain, dysuria, hematuria, urinary retention, paralysis, weakness, numbness and tingling. Review of Systems: Constitutional: No chills, No fever, No sweats Eyes: + eye pain (1/10 dull aching pain L eye, much improved), No diplopia, No worsening of vision ENT: No hearing loss, No sore throat, No trouble swallowing Respiratory: No cough, No shortness of breath, No wheezing Cardiovascular: No chest pain, No claudication, No orthopnea, No palpitations Abdomen: No nausea, No pain, No vomiting Musculoskeletal: No calf pain, No joint pain, No muscle pain Genitourinary - Male: No dysuria, No hematuria, No urinary retention Neurologic: No numbness/tingling, No paralysis, No weakness Integumentary: No color change, No itch, No rash Physical Exam: General Appearance: WD/WN, no apparent distress Eyes: normal inspection, PERRL, EOMI ENT: normal ENT inspection, hearing grossly normal, pharynx normal Neck: supple, no JVD, trachea midline Respiratory/Chest: lungs clear, normal breath sounds, no respiratory distress, + decreased breath sounds (bases bilaterally) Cardiovascular: no gallop, + systolic murmur, + irregularly irregular (rate controlled) Abdomen / GI: normal bowel sounds, non tender, soft Extremities: normal inspection, no calf tenderness, no pedal edema Neurologic/Psychiatric: alert, normal mood/affect, oriented x 3 Skin: normal color, warm/dry, no rash (Lori Sims ., KIZZY) Hospital Course 71 y/o male with a history of recently diagnosed CHF, a-fib, HTN, HLD, hypothyroidism, and rheumatoid arthritis who presented to the ED on 12/15 with worsening shortness of breath x 2 days. C/o left shoulder pain and left eye pain. CXR shows pulmonary edema. EKG shows a-fib, ST depressions in V3-V5. Mildly elevated troponin on arrival at 0.081. CT head and sinuses show complete opacification of left maxillary sinus and left ethmoid air cells. Acute on chronic systolic CHF -Admitted to telemetry -Received 1 dose Lasix 40 mg IV in ED. Urine output 3600 cc -Echo: Moderate LV dysfunction, LVEF 35-40%. Akinetic inferior, mid inferolateral wall. Severe anteroseptal and septal hypokinesis. Grade III diastolic dysfunction. Moderate . Mild pulmonary HTN. Compared to study on 09/05/2016, LV is less dilated and has mildly improved function -Continue carvedilol 12.5 mg PO BID -Pt appears to be euvolemic, will maintain on Lasix 40 mg PO qd as outpatient ( pt had only been taking 20 mg PO qd prior to arrival). Elevated troponin, anterolateral ST depression--denies any chest pain, likely represents demand ischemia secondary to CHF exacerbation -Troponin peaked at 0.095, then trended downwards. Last troponin 0.069. Other cardiac enzymes negative -No acute events during stay, no chest pain Hypokalemia--resolved -Potassium 2.8 12/16 -KCl 40 mEq PO TID, d/c' after 12/16 and maintained on KCl 40 mEq PO qd -Repeat potassium later on 12/16 up to 3.9 and has remained stable -Continue KCl 20 mEq PO qd on discharge A-fib--currently in a-fib, rate controlled -Digoxin levels subtherapeutic -Continue Digoxin 0.125 mg PO qd and diltiazem 240 mg PO qd -Continue Pradaxa 150 mg PO BID Left eye pain--improving -CT sinuses shows near complete opacification left maxillary and left ethmoid air cells, opacified left ostiomeatal unit, probable destructive changes versus expansile changes left medial maxillary sinus wall. Chronic sinus change vs expansile polypoid change. -Will continue to monitor for persistent or worsening symptoms -Tender over left zoroastrianism, could represent temporal arteritis, however this seems unlikely due to chronic prednisone use -Possible cluster headache vs early Shingles? -Toradol 15 mg IV q6h prn pain -Continue Augmentin 875 mg PO BID for sinusitis. Started evening of 12/16, received total of 6 doses while inpatient. Will need total of 10 day course, script for remaining doses given. Pt's pain is improving as sinuses are clearing, reassuring that pain is secondary to sinusitis Diarrhea--improving -Continue Floranex 4 tabs PO TIDM and Imodium 2 mg PO q4h while taking Augmentin if sx persist Hemorrhoids -Anusol 25 mg NM q6h for internal hemorrhoids/irritation -Anusol 2.5% cream q6h for external hemorrhoids/irritation HTN--stable -Continue diltiazem and carvedilol as above HLD -Continue atorvastatin 40 mg PO qd Hypothyroidism -Continue Synthroid 75 mcg PO qd Rheumatoid arthritis -Continue Plaquenil 200 mg PO BID, sulfasalazine 500 mg PO BID, and prednisone 10 mg PO BID DVT prophylaxis -Pradaxa -DAVIAN hose and SCDs Code Status -Level I, FULL RESUSCITATION STATUS Dispo -Pt medically stable for discharge, will need to f/u with PCP in a few days to ensure remains euvolemic. Nurse navigator setting pt up with PCP and appointment. -Patient safe to return home per physical therapy but recommend home PT services. Pt agreeable, used [facility] in the past. Referral placed by case management. -F/u with PCP within a few days -F/u with cardiology within 1 week Total Time Spent: Greater than 30 minutes This includes examination of the patient, discharge planning, medication reconciliation, and communication with other providers. (Lori Sims ., KIZZY) Attending Attestation: Pt seen/examined, chart reviewed, care plan d/w KAREY Sims on day of discharge. I agree with the swanson components of her discharge summary. 71yo male with known chronic systolic/diastolic CHF who presented with acute/ chronic CHF. He diuresed well during his stay and O2 was weaned off. O2 sats in room air with walking were normal on day of discharge. Discharge weight was 87.9kg. His lasix dose was increased to 40mg once daily and he will need close f/u with his primary poiser balance for the CHF. His course was complicated by left sided headache due to acute sinusitis. His headache resolved after a few days of antibiotic therapy. On day of discharge the patient reported mild BRBPR; digital rectal exam demonstrated a tender hemorrhoid. He will use anusol cream/suppositories for such after discharge. All other medical conditions remained stable while here. He was counseled to continue fluid & salt restriction and to check weights daily at home. Discharge exam: gen - NAD neck - no JVD heart - RRR, s1, s2, 2/6 holosystolic murmur RUSB lungs - CTA b/l abd - soft rectal - hemorroid present with nafisa-rectal irritation from recent diarrhea; no masses ext - no edema Trev Li MD Total Time Spent: Greater than 30 minutes (Trev Li MD) Discharge Instructions Please refer to the electronic Patient Visit Report (Discharge Instructions) for additional information. (Lori Sims ., PA-C) Additional Copies To Neo Musa D.O.; Sheldon Conteh MD
[2016-12-19] MEDS ORDERED: MISC-573 MS (13:57)
[2016-12-19] MEDS ORDERED: HYDR2.5C37 TOP (14:28)
[2016-12-19] MEDS ORDERED: HYDR25SU20 PR (14:28)
[2016-12-19 14:56] VITALS: BP 107/78; PULSE 80; TEMP 36.8; O2SAT 91
== END 2016-12-19 15:28 | disposition home health service (06) | DRG 292 ==
LOC: ENRESERVTM → ENRESERVDT → EDBD 22:10 → C.EDB 22:11 → C.2T 12-16 01:08 → C.MS2W 12-19 10:10
PROVIDERS: ADMIT Student in an Organized Health Care Education/Training Program; ATTEND Internal Medicine
DX: I50.43 Acute on chronic combined systolic (congestive) and diastolic (congestive) heart failure (principal); I24.8 Other forms of acute ischemic heart disease; I48.2 Chronic atrial fibrillation; I10 Essential (primary) hypertension; M06.9 Rheumatoid arthritis, unspecified; Z88.2 Allergy status to sulfonamides; K21.9 Gastro-esophageal reflux disease without esophagitis; F32.9 Major depressive disorder, single episode, unspecified; I27.2 Other secondary pulmonary hypertension; Z95.0 Presence of cardiac pacemaker; I35.0 Nonrheumatic aortic (valve) stenosis; E03.9 Hypothyroidism, unspecified; E78.5 Hyperlipidemia, unspecified; E87.6 Hypokalemia; Z79.52 Long term (current) use of systemic steroids; G44.009 Cluster headache syndrome, unspecified, not intractable; J32.9 Chronic sinusitis, unspecified